=== PATIENT | female | born 1940 | race Caucasian/White ===

== ENCOUNTER 2022-04-09 13:21 | Emergency (ER) | payer BC, SELFPAY ==
[2022-04-09 13:36] VITALS: BP 118/57; PULSE 66; RESP 18; TEMP 37.2; O2SAT 98
--- NOTE | 2022-04-09 13:36 | ED.FEMALEGU ---
HPI - Female Genitourinary General Chief complaint: Urogenital-Female Stated complaint: Poss UTI/foot infection Time Seen by Provider: 04/09/22 13:36 Source: patient and family Mode of arrival: wheelchair Limitations: no limitations History of Present Illness HPI Narrative: 81 yo F presents with c/o urinary urgency, burning, bladder pressure for 2 days. Also reports some mild itching. Is concerned she has UTI. Reports kidney issues . Takes macrobid daily for several years. Denies ever/chills. No N/V. Lives in assisted living. PCP was not able to see her today. Also reports pain, redness and swelling to R great toe. Was on doxycycline a month ago for toe infection. States infection improved but toe has still been painful. Denies injury. Would like referral to podiatry. All systems reviewed and negative except as noted above. Related Data Home Medications Medication Instructions Recorded Confirmed ferrous sulfate 325 mg (65 mg 1 tablet PO DAILY 04/09/22 04/09/22 iron) tablet (FeroSul) fluoxetine 40 mg capsule 1 cap PO DAILY 04/09/22 04/09/22 primidone 50 mg tablet 3 tablet PO DAILY 04/09/22 04/09/22 quinapril 10 mg tablet 1 tablet PO DAILY 04/09/22 04/09/22 ropinirole 4 mg tablet 1 tablet PO TID 04/09/22 04/09/22 triamterene 37.5 1 cap PO DAILY 04/09/22 04/09/22 mg-hydrochlorothiazide 25 mg capsule Allergies Allergy/AdvReac Type Severity Reaction Status Date / Time Cephalosporins Allergy Mild Swelling Verified 04/09/22 14:31 of Lip/Tongue/Throat Review of Systems Review of Systems: CONSTITUTIONAL: Denies fever, chills, or sweats. EYES: Denies visual changes, redness, or discharge. ENT: Denies rhinorrhea, congestion, sore throat, or otalgia. CARDIOVASCULAR: Denies chest pain, palpitations, or edema. RESPIRATORY: Denies cough or dyspnea. GASTROINTESTINAL: Denies abdominal pain, nausea, vomiting, or diarrhea. GENITOURINARY: Reports dysuria, bladder pressure, urgency. Denies hematuria. SKIN: Denies rash or itching. Reports redness, swelling to right great toe. MUSCULOSKELETAL: Denies back pain, joint pain, or myalgia. NEUROLOGIC: Denies headache, numbness, or weakness. PSYCHIATRIC: Denies anxiety or depression. All other systems reviewed are negative, except as documented in HPI. PMFSH Comments At time of signature, agree with nursing past medical, surgical, social and family history. There is no relevant family history pertinent to the presenting complaint. Exam Narrative: GENERAL: This is a well-nourished, well-developed patient, in no apparent distress. HEAD: normocephalic, atraumatic. EYES: PERRL. Sclera clear/white. Vision is grossly intact. EARS: External ears normal NOSE: External nose normal NECK: Neck supple, non-tender without lymphadenopathy, masses or thyromegaly. CARDIOVASCULAR: Regular rate and rhythm without murmurs, gallops, or rubs. RESPIRATORY: Clear to auscultation. Breath sounds equal bilaterally. No wheezes, rales, or rhonchi. SKIN: warm, Dry, intact with no suspicious lesions or rash, good texture and turgor. erythema, mild swelling to R great toe. tenderness along cuticle of R great toe. no drainage. nail is thick and yellow. NEURO: awake, alert, and oriented to person, place and time. There were no obvious focal neurologic abnormalities. EXTREMITIES: No joint tenderness, effusion, or edema noted. BACK: No CVA tenderness. Course Course Level of Care: Express Care Visit Vital Signs Vital signs: Vital Signs Temperature 37.2 C 04/09/22 13:36 Pulse Rate 66 04/09/22 13:36 Respiratory Rate 18 04/09/22 13:36 Blood Pressure 118/57 L 04/09/22 13:36 Pulse Oximetry 98 04/09/22 13:36 Oxygen Delivery Room Air 04/09/22 13:36 Temperature 37.2 C 04/09/22 13:36 Pulse Rate 66 04/09/22 13:36 Respiratory Rate 18 04/09/22 13:36 Blood Pressure 118/57 L 04/09/22 13:36 Pulse Oximetry 98 04/09/22 13:36 Oxygen Delivery Room Air 04/09/22 13:36
== END 2022-04-09 15:00 | disposition home or self-care (01) ==
PROVIDERS: Emergency Provider Nurse Practitioner Family; PCP Internal Medicine
DX: R30.0 Dysuria (principal); L03.031 Cellulitis of right toe; I10 Essential (primary) hypertension; F32.A Depression, unspecified; Z96.653 Presence of artificial knee joint, bilateral; Z96.612 Presence of left artificial shoulder joint; Z96.611 Presence of right artificial shoulder joint
CPT/HCPCS: 81003; 99213; G0463

== ENCOUNTER 2022-06-06 12:39 | Emergency (ER) | payer BC, SELFPAY ==
--- NOTE | 2022-06-06 12:53 | ED.FEMALEGU ---
HPI - Female Genitourinary General Chief complaint: Urogenital-Female Stated complaint: poss UTI Time Seen by Provider: 06/06/22 12:53 Source: patient, RN notes reviewed and old records reviewed Mode of arrival: ambulatory (with use of walker) Limitations: no limitations History of Present Illness HPI Narrative: 82 year old female accompanied by daughter in law presents ambulatory with walker to express care with complaints of urinary burning and urgency for the past 2 days. Patient does have some problems with urinary incontinency and does wear depends with history of urinary tract infections. Patient takes daily Macrobid prophylactically for frequent urinary tract infections. Patient reports that she has increased burning with urination, denies any flank pain or any suprapubic tenderness, denies any visible blood with urination.Patient reports that she has been COVID vaccinated. MD elicited complaint: dysuria and UTI Pertinent past history: recurrent UTIs and urinary incontinence Onset (ago): day(s) (2) Related Data Home Medications Medication Instructions Recorded Confirmed ferrous sulfate 325 mg (65 mg 1 tablet PO DAILY 04/09/22 06/06/22 iron) tablet (FeroSul) fluoxetine 40 mg capsule 1 cap PO DAILY 04/09/22 06/06/22 primidone 50 mg tablet 1 tablet PO TID 04/09/22 06/06/22 quinapril 10 mg tablet 1 tablet PO DAILY 04/09/22 06/06/22 ropinirole 4 mg tablet 1 tablet PO TID 04/09/22 06/06/22 triamterene 37.5 1 cap PO DAILY 04/09/22 06/06/22 mg-hydrochlorothiazide 25 mg capsule docusate sodium 100 mg capsule 300 mg PO HS 06/06/22 06/06/22 (Stool Softener) nitrofurantoin 100 mg PO BID 06/06/22 06/06/22 monohydrate/macrocrystals 100 mg capsule pantoprazole 40 mg tablet,delayed 40 mg PO DAILY 06/06/22 06/06/22 release Allergies Allergy/AdvReac Type Severity Reaction Status Date / Time Cephalosporins Allergy Mild Swelling Verified 06/06/22 12:47 of Lip/Tongue/Throat Review of Systems Review of Systems: CONSTITUTIONAL: Denies fever, chills, or sweats. EYES: Denies visual changes, redness, or discharge. ENT: Denies rhinorrhea, congestion, sore throat, or otalgia. CARDIOVASCULAR: Denies chest pain, palpitations, or edema. RESPIRATORY: Denies cough or dyspnea. GASTROINTESTINAL: Denies abdominal pain, nausea, vomiting, or diarrhea.No CVA tenderness GENITOURINARY: Positive dysuria and urgency with no visible hematuria. SKIN: Denies rash or itching. MUSCULOSKELETAL: Denies back pain, joint pain, or myalgia. NEUROLOGIC: Denies headache, numbness, or weakness. PSYCHIATRIC: Positive for history of anxiety or depression. All systems reviewed & are unremarkable except as noted in HPI and below PMFSH Past Medical History Medical History (Updated 06/08/22 @ 11:17 by Cindy Cohn NP) Anemia Depression Essential tremor GERD (gastroesophageal reflux disease) Hiatal hernia Hypertension Restless leg syndrome UTI (urinary tract infection) Surgical History Surgical History (Updated 06/08/22 @ 11:08 by Cindy Cohn NP) History of knee replacement procedure of left knee History of shoulder replacement bilateral Status post total knee replacement, right Social History Social History (Updated 06/08/22 @ 11:12 by Cindy Cohn NP) Smoking status: Never smoker Alcohol intake: former Alcohol use details: rare Substance use: never Substance use type: does not use Living arrangements: assisted living Occupation/Education: retired Gender identity (if verbalized by the patient): Female Comments At time of signature, agree with nursing past medical, surgical, social and family history. There is no relevant family history pertinent to the presenting complaint Exam Narrative: GENERAL: Well-appearing, well-nourished, and in no acute distress. HEAD: Normocephalic, atraumatic. EYES: PERRLA and EOMI. ENT: Nares clear, no rhinorrhea or epistaxis. Mucous membranes moist.TM'
[2022-06-06 13:03] VITALS: BP 155/75; PULSE 85; RESP 16; TEMP 37.3; O2SAT 100
== END 2022-06-06 13:35 | disposition home or self-care (01) ==
PROVIDERS: Emergency Provider Registered Nurse; PCP Internal Medicine
DX: N39.0 Urinary tract infection, site not specified (principal); K21.9 Gastro-esophageal reflux disease without esophagitis; I10 Essential (primary) hypertension; G25.81 Restless legs syndrome; Z96.653 Presence of artificial knee joint, bilateral; Z96.612 Presence of left artificial shoulder joint; Z96.611 Presence of right artificial shoulder joint; D64.9 Anemia, unspecified; F32.A Depression, unspecified
CPT/HCPCS: 87086; 87088; 99213; G0463

== ENCOUNTER 2025-01-24 19:46 | Inpatient (IN) | payer MEDICARE, BC, SELFPAY ==
--- NOTE | ~2025-01-24 | XR_ITS ---
XR chest 1V portable Ordering provider: Crow Gregory MD History: 84 years Female with . Ground level fall . Comparison: None. FINDINGS: MEDIASTINUM: The cardiac silhouette is not enlarged. Possible sliding hiatus hernia versus elevation of the left hemidiaphragm. The line Projected over the right apical area is most likely outside the body. LUNGS: No pneumothorax. Opacification in the left lower lobe area suggestive of atelectasis versus pn eumonia. Prominent bronchovascular markings in both lower lobes. OTHER: No free air under the diaphragm. Bilateral shoulder arthroplasty. Degenerative changes of the spine with dextroscoliosis. IMPRESSION: Opacification in the left lower lobe area which may indicate atelectasis versus pneumonia. Elevation of the hemidiaphragm cannot be excluded. Sliding hiatus hernia in this area also cannot be excluded. Further evaluation advised. Reviewed, dictated and finalized at location A. IMPRESSION: Opacification in the left lower lobe area which may indicate atelectasis versus pneumonia. Elevation of the hemidiaphragm cannot be excluded. Sliding hiatus hernia in thi s area also cannot be excluded. Further evaluation advised.
--- NOTE | ~2025-01-24 | CT_ITS ---
CT brain wo con Ordering provider: Suzanne Smith APRN History: 84 years Female with . vertigo . Comparison: January 24, 2025 Technique: CT of the head without contrast. Radiation reduction technique utilized.The dose-length pr oduct was 1276.84 mGy-cm. FINDINGS: BRAIN PARENCHYMA AND CSF SPACES: Mild leukoaraiosis and diffuse cortical atrophy. Mild atheromatous d isease. Ventricular dilatation is prominent compared to the brain atrophy. Clinical evaluation for no rmal pressure hydrocephalus should be considered. No midline shift, mass effect or hemorrhage. The b rain parenchyma and CSF spaces are otherwise normal. VISUALIZED PARANASAL SINUSES: Well aerated. MASTOIDS: Well aerated. BONES: The bones appear intact. SOFT TISSUES: Visualized nasopharynx is normal. Superficial soft tissues are normal. IMPRESSION: No acute intracranial findings. Reviewed, dictated and finalized at location A.
--- NOTE | ~2025-01-24 | CT_ITS ---
CT brain wo con, CT cervical spine wo con Ordering provider: Crow Gregory MD History: 84 years Female with . fall, head injury . Comparison: None. Technique: CT of the head without contrast. Radiation reduction technique utilized.The dose-length pr oduct was 605.33 mGy-cm. FINDINGS: BRAIN PARENCHYMA AND CSF SPACES: Mild leukoaraiosis and diffuse cortical atrophy. Mild atheromatous d isease. Ventricular dilatation is seen which is more prominent than the brain atrophy. Normal pressur e hydrocephalus should be considered. No midline shift, mass effect or hemorrhage. The brain parench yma and CSF spaces are otherwise normal. VISUALIZED PARANASAL SINUSES: Well aerated. MASTOIDS: Well aerated. BONES: The bones appear intact. Fracture of C1 is highly suggestive. SOFT TISSUES: Visualized nasopharynx is normal. Superficial soft tissues are normal. IMPRESSION: No acute intracranial findings. Brain atrophy with dilated ventricles which is not compatible with the degree of atrophy. Normal pres sure hydrocephalus should be considered. CT brain wo con, CT cervical spine wo con Ordering provider: Crow Gregory MD History: . fall, head injury . Comparison: None. Technique: CT of the cervical spine was performed without contrast. Sagittal and coronal reformatted images were also obtained and reviewed. Automated exposure control and iterative reconstruction fernando hnique were employed. The dose-length product was 605.33 mGy-cm. FINDINGS: VERTEBRAE: Fracture of C1 is seen suggestive of Juliano fracture involving the anterior arch of C1 and both posterior arch sides. No fractures seen in the occipital condyles. Levoscoliosis. Widening o f the distance between the posterior arch of C1 and C2 suggestive of ligamentous injury. DISC SPACES: Narrowing of the disc spaces C4-C5, C5-C6, C6-C7 and C7-T1. Multilevel facet joint disea se. Multilevel uncovertebral joint osteoarthritic changes. Multilevel intervertebral foraminal narrow ing. PARASPINOUS SOFT TISSUES: Hematoma posterior to the odontoid process is not excluded but this ca n be ligamentous calcification. Minimal opacification seen peripherally in the left lung apex suggest jonathan of atelectasis versus focal pneumonia. IMPRESSION: Juliano fracture of C1 is noted. Widening of the distance between C1-C2 spinous processes which may indicate ligamentous injury. Multilevel degenerative disc disease seen. Physician: Crow Gregory MD Was notified with the result of the patient at 10:00 Pm on January 24, 2025. Reviewed, dictated and finalized at location A. IMPRESSION: No acute intracranial findings. Brain atrophy with dilated ventricles which is not compatible with the degree o f atrophy. Normal pressure hydrocephalus should be considered. CT brain wo con, CT cervical spine wo con Ordering provider: Crow Gregory MD History: . fall, head injury . Comparison: None. Technique: CT of the cervical spine was performed without contrast. Sagittal a nd coronal reformatted images were also obtained and reviewed. Automated expos ure control and iterative reconstruction technique were employed. The dose-victoria th product was 605.33 mGy-cm. FINDINGS: VERTEBRAE: Fracture of C1 is seen suggestive of Juliano fracture involving th e anterior arch of C1 and both posterior arch sides. No fractures seen in the o ccipital condyles. Levoscoliosis. Widening of the distance between the posterio r arch of C1 and C2 suggestive of ligamentous injury. DISC SPACES: Narrowing of the disc spaces C4-C5, C5-C6, C6-C7 and C7-T1. Multil evel facet joint disease. Multilevel uncovertebral joint osteoarthritic changes . Multilevel intervertebral foraminal narrowing. PARASPINOUS SOFT TISSUES: Lloyd jacey posterior to the odontoid process is not excluded but this can be ligament ous calcification. Minimal opacification seen peripherally in the left lung ape x suggestive of atelectasis versus focal pneumonia. IMPRESSION: Juliano fracture of C1 is noted. Widening of the distance between C1-C2 spinous processes which may indicate lig amentous injury. Multilevel degenerative disc disease seen. Physician: Crow Gregory MD Was notified with the result of the patient at 10:00 Pm on January 24, 2025. IMPRESSION: No acute intracranial findings. Brain atrophy with dilated ventricles which is not compatible with the degree o f atrophy. Normal pressure hydrocephalus should be considered. CT brain wo con, CT cervical spine wo con Ordering provider: Crow Gregory MD History: . fall, head injury . Comparison: None. Technique: CT of the cervical spine was performed without contrast. Sagittal a nd coronal reformatted images were also obtained and reviewed. Automated expos ure control and iterative reconstruction technique were employed. The dose-victoria th product was 605.33 mGy-cm. FINDINGS: VERTEBRAE: Fracture of C1 is seen suggestive of Juliano fracture involving th e anterior arch of C1 and both posterior arch sides. No fractures seen in the o ccipital condyles. Levoscoliosis. Widening of the distance between the posterio r arch of C1 and C2 suggestive of ligamentous injury. DISC SPACES: Narrowing of the disc spaces C4-C5, C5-C6, C6-C7 and C7-T1. Multil evel facet joint disease. Multilevel uncovertebral joint osteoarthritic changes . Multilevel intervertebral foraminal narrowing. PARASPINOUS SOFT TISSUES: Lloyd jacey posterior to the odontoid process is not excluded but this can be ligament ous calcification. Minimal opacification seen peripherally in the left lung ape x suggestive of atelectasis versus focal pneumonia.
--- OUTSIDE RECORDS SUMMARY | 2025-01-24 19:48 | XMS_ITS | CONTINUITY OF CARE DOCUMENT ---
Author Name liseth childers Address Unknown Organization [facility] Address [address] [place] [address] Phone [phone] Care Team Providers Care Clinical Manager Home Care Name Role Phone Den SHEEHAN, Colton Unavailable Stone OCEAN FREIGHT MANAGER-BC, Crystal Unavailable Stone OCEAN FREIGHT MANAGER-BC, Crystal Unavailable [phone] PROBLEMS Condition Status Date Provider Notes Cardiology examination active Colton Crenshaw MD HTN essential active Colton Crenshaw MD Anxiety/depression active Colton Crenshaw MD Leg edema, bilateral active Colton Crenshaw MD VENOUS INSUFFICIENCY - mild active Colton oglesby MD ENCOUNTERS Date Type Provider Location Encounter Diag nosis - In-person encounter Office Visit Colton Crenshaw MD [place] VENOUS INSUFFICIENCY - mild - In-person encounter Office Visit Colton Crenshaw MD [facility] Cardiology examinationHTN essentialAnxiety/depre ssionLeg edema, bilateral VITAL SIGNS Date Observation Value Provider blood pressure, diastolic 79 mm[Hg] Nael walton Samira blood pressure, systolic 145 mm[Hg] She maddie Samira respiratory rate E&M 18 /min Alie Samira oxygen saturation, oximetry 98 % Alie Hogan pulse rate 53 /min Alie Hogan height E&M 62 [in_i] Alie Hogan blood pressure, cuff size regular Nael Hogan blood pressure, diastolic 70 mm[Hg] Stephanie nkLogclemencia blood pressure, systolic 144 mm[Hg] Laura Hinkleogic pulse rate 59 /min Tj javier y blood pressure, cuff size regular Ja rret blood pressure, diastolic 70 mm[Hg] Ja rret blood pressure, systolic 144 mm[Hg] Jar ret respiratory rate E&M 12 /min Tj oxygen saturation, oximetry 95 % Tj height E&M 62 [in_i] Tj y ALLERGIES No Known Drug Allergies HISTORY OF MEDICATION USE Medication Status Instructions Dates Provider Indications Com ments docusate sodium 100 mg capsule active FeroSul 325 mg (65 mg iron) tablet active fluoxetine 40 mg capsule active furosemide 40 mg tablet active lisinopril 10 mg tablet active pantoprazole 40 mg tablet,delayed release (DR/EC) active primidone 50 mg tablet active quinapril 10 mg tablet active ropinirole 4 mg tablet active Vitamin B-12 500 mcg tablet active SOCIAL HISTORY Date Observation Value Provider social history E&M S moking History: Horace denny has never smoked. Colton Crenshaw MD social history reviewed E&M revi ewed - no changes required Colton Crenshaw MD smoking status Never smoker Alie Samira social history E&M S moking History: Horace denny has never smoked. Colton Crenshaw MD social history reviewed E&M revi ewed - no changes required Colton Crenshaw MD smoking status Never smoker Nora Cabrera man INSURANCE PROVIDERS Payer name Policy type / Coverage type Jewels red libertarian ID [facility] [id number] ADVANCE DIRECTIVES Name Date DISCUSSED - NO DECISION MADE TREATMENT PLAN Date Name Performer [id number],C,a dvised her to wear elis bandages around LE because compression stockings would be difficult for her to get on Colton Crenshaw MD [id number],C, B P today: 145/79 P rior BP: 144/70 (05/13/2023) Her updated medication list for this problem includes: Furosemide 40 Mg Tablet (Furosemide) Lisinopril 10 Mg Tablet (Lisinopril) Quinapril 10 Mg Tablet (Quinapril) Colton Crenshaw MD [id number],N, Colton Crenshaw MD [id number],C, B P today: 144/70 Her updated medication list for this problem includes: Furosemide 40 Mg Tablet (Furosemide) Lisinopril 10 Mg Tablet (Lisinopril) Colton Crenshaw MD [id number],C,W ill get labs from her imaging center manager office W ill get LEYLA and standing venous doppler Colton Crenshaw MD Cardiology:advised h er to wear elis bandages around LE because compression stockings would be difficult for her to get on Colton Crenshaw MD Cardiology: B P today: 145/79 P rior BP: 144/70 (05/13/2023) Her updated medication list for this problem includes: Furosemide 40 Mg Tablet (Furosemide) Lisinopril 10 Mg Tablet (Lisinopril) Quinapril 10 Mg Tablet (Quinapril) Colton Crenshaw MD Cardiology Colton Crenshaw MD Cardiology: B P today: 144/70 Her updated medication list for this problem includes: Furosemide 40 Mg Tablet (Furosemide) Lisinopril 10 Mg Tablet (Lisinopril) Colton Crenshaw MD Cardiology:Will get labs from her imaging center manager office W ill get LEYLA and standing venous doppler Colton Den MD Date Name Arterial Duplex Bi-L ower EX Venous Doppler Bilat eral LE - Reflux Complete Echo HISTORY OF PROCEDURES Procedure Date Procedure Name Provider Procedure Notes S tatus EKG Colton Crenshaw MD completed
[2025-01-24 19:53] VITALS: BP 129/53; PULSE 58; RESP 14; TEMP 36.6; O2SAT 100
--- OUTSIDE RECORDS SUMMARY | 2025-01-24 22:33 | XMS_ITS | CONTINUITY OF CARE DOCUMENT ---
Author Name liseth childers Address Unknown Organization [facility] Address [address] [place] [address] Phone [phone] Care Team Providers Care Knitter Machine Name Role Phone Den SHEEHAN, Colton Unavailable Stone PYTHON DEVELOPER-BC, Crystal Unavailable [phone] Stone PYTHON DEVELOPER-BC, Crystal Unavailable PROBLEMS Condition Status Date Provider Notes Cardiology examination active Colton Crenshaw MD HTN essential active Colton Crenshaw MD Anxiety/depression active Colton Crenshaw MD Leg edema, bilateral active Colton Crenshaw MD VENOUS INSUFFICIENCY - mild active Colton oglesby MD ENCOUNTERS Date Type Provider Location Encounter Diag nosis - In-person encounter Office Visit Colton Crenshaw MD [place] [facility] VENOUS INSUFFICIENCY - mild - In-person encounter Office Visit Colton Crenshaw MD [facility] Cardiology examinationHTN essentialAnxiety/depre ssionLeg edema, bilateral [...] Policy type / Coverage type Jewels red constitution party ID [facility] [id number] ADVANCE DIRECTIVES Name Date DISCUSSED - NO DECISION MADE TREATMENT PLAN Date Name Performer [id number],C,a dvised her to wear elis bandages around LE because compression stockings would be difficult for her to get on Colton Crenshaw MD [id number],C, B P today: 145/79 P rior BP: 144/70 (05/13/2023) Her updated medication list for this problem includes: Furosemide 40 Mg Tablet (Furosemide) Lisinopril 10 Mg Tablet (Lisinopril) Quinapril 10 Mg Tablet (Quinapril) Colton Crenshaw MD [id number],N, Colton Crenshaw MD [id number],C, B P today: 144/70 Her updated medication list for this problem includes: Furosemide 40 Mg Tablet (Furosemide) Lisinopril 10 Mg Tablet (Lisinopril) Colton Cernshaw MD [id number],C,W ill get labs from her academic manager office W ill get LEYLA and [...] Crenshaw MD Cardiology:Will get labs from her academic manager office W ill get LEYLA and standing venous doppler Colton Den MD Date Name Arterial Duplex Bi-L ower EX Venous Doppler Bilat eral LE - Reflux Complete Echo HISTORY OF PROCEDURES Procedure Date Procedure Name Provider Procedure Notes S tatus EKG Colton Crenshaw MD completed
--- NOTE | 2025-01-24 22:49 | ED_ITS ---
HPI - General Adult General Chief complaint: Fall Stated complaint: fall, head injury Time Seen by Provider: 01/24/25 22:20 History of Present Illness HPI narrative: Patient is a 84-year-old female who presents emergency department with chief complaint of neck pain and head pain patient is resident [facility] the [facility] and had a ground level fall fell backwards and struck her head on the tile floor patient reports no loss of consciousness reports that her neck is sore Related Data Home Medications ?Medication ?Instructions ?Recorded ?Confirmed ?Last Taken ?Type ferrous sulfate 325 mg (65 mg 1 tablet PO DAILY 04/09/22 06/06/22 Unknown History iron) tablet (FeroSul) fluoxetine 40 mg capsule 1 cap PO DAILY 04/09/22 06/06/22 Unknown History primidone 50 mg tablet 1 tablet PO TID 04/09/22 06/06/22 Unknown History quinapril 10 mg tablet 1 tablet PO DAILY 04/09/22 06/06/22 Unknown History ropinirole 4 mg tablet 1 tablet PO TID 04/09/22 06/06/22 Unknown History triamterene 37.5 1 cap PO DAILY 04/09/22 06/06/22 Unknown History mg-hydrochlorothiazide 25 mg capsule docusate sodium 100 mg capsule 300 mg PO HS 06/06/22 06/06/22 Unknown History (Stool Softener) nitrofurantoin 100 mg PO BID 06/06/22 06/06/22 Unknown History monohydrate/macrocrystals 100 mg capsule pantoprazole 40 mg tablet,delayed 40 mg PO DAILY 06/06/22 06/06/22 Unknown History release Allergies Allergy/AdvReac Type Severity Reaction Status Date / Time Cephalosporins Allergy Mild Swelling Verified 01/24/25 20:00 of Lip/Tongue/Throat Review of Systems 2 Review of Systems: A 10 system review of systems was completed on the patient and is negative except for what is stated in the HPI. Nursing and ancillary documentation was reviewed. [facility] Past Medical History Medical History Restless leg syndrome Depression GERD (gastroesophageal reflux disease) Anemia UTI (urinary tract infection) Hiatal hernia Essential tremor Hypertension Surgical History Surgical History History of shoulder replacement bilateral Status post total knee replacement, right History of knee replacement procedure of left knee Social History Social History Smoking status: Never smoker Alcohol intake: former Alcohol use details: rare Substance use: never Substance use type: does not use Living arrangements: assisted living Occupation/Education: retired Gender identity (if verbalized by the patient): Female Exam 2 Narrative: GENERAL: Well-appearing, well-nourished, and in no acute distress. HEAD: Normocephalic, atraumatic. EYES: PERRLA and EOMI. ENT: Nares clear, no rhinorrhea or epistaxis. Mucous membranes moist. NECK: Supple. Mild midline C-spine tenderness CHEST: Clear to auscultation. No respiratory distress. HEART: Regular rate and rhythm. No murmur heard. Normal peripheral pulses. ABDOMEN: Soft, nontender, nondistended, normal active bowel sounds. EXTREMITIES: Normal range of motion. No edema. SKIN: Warm, dry, no rash. NEURO: No focal deficits. Alert and oriented x3. PSYCH: Normal mood and affect. Course Vital Signs Vital signs: Vital Signs Temperature 36.6 C 01/24/25 19:53 Pulse Rate 58 L 01/24/25 19:53 Respiratory Rate 14 01/24/25 19:53 Blood Pressure 129/53 L 01/24/25 19:53 Pulse Oximetry 100 01/24/25 19:53 Oxygen Delivery Room Air 01/24/25 19:53 Temperature 36.6 C 01/24/25 19:53 Pulse Rate 61 01/24/25 23:06 Respiratory Rate 14 01/24/25 23:06 Blood Pressure 135/52 L 01/24/25 23:06 Pulse Oximetry 100 01/24/25 23:06 Oxygen Delivery Room Air 01/24/25 19:53 Medical Decision Making [facility] Narrative Medical decision making narrative: Differential diagnosis includes intracranial hemorrhage, cervical spine fracture The patient had a mechanical ground level fall reports isolated pain in the neck Laboratory studies were ordered CT head showed no evidence of acute intracranial hemorrhage CT C-spine showed evidence of a C1 Juliano fracture Case was discussed with Dr. Meza Vital Signs Vital Signs: Vital Signs Temperature 36.6 C 01/24/25 19:53 Pulse Rate 58 L 01/24/25 19:53 Respiratory Rate 14 01/24/25 19:53 Blood Pressure 129/53 L 01/24/25 19:53 Pulse Oximetry 100 01/24/25 19:53 Oxygen Delivery Room Air 01/24/25 19:53 Temperature 36.6 C 01/24/25 19:53 Pulse Rate 61 01/24/25 23:06 Respiratory Rate 14 01/24/25 23:06 Blood Pressure 135/52 L 01/24/25 23:06 Pulse Oximetry 100 01/24/25 23:06 Oxygen Delivery Room Air 01/24/25 19:53 Lab Data 01/24/25 22:55 01/24/25 22:55 Labs: Lab Results 01/24/25 01/24/25 Range/Units 22:55 23:28 WBC 7.6 (4.5-10.0) K/mm3 RBC 3.04 L (4.2-5.4) M/mm3 Hgb 9.8 L (12.0-15.0) g/dL Hct 30.2 L (37.0-47.0) % MCV 99.3 (80-100) fl MCH 32.2 (26-34) pg MCHC 32.5 (32-36) g/dl RDW 14.6 H (11.5-14.5) % Plt Count 254 (150-375) k/mm3 MPV 10.4 (7.4-10.4) fl Immature Gran % (Auto) 0.3 (0-0.5) % Neut % (Auto) 50.6 (45.5-73.1) % Lymph % (Auto) 36.2 (18.3-44.2) % [place] % (Auto) 9.1 H (2.6-8.5) % Eos % (Auto) 3.3 (0-4.4) % Baso % (Auto) 0.5 (0.2-1.2) % Lymph # (Auto) 2.73 (0.9-3.2) K/mm3 [place] # (Auto) 0.7 H (0.1-0.6) K/mm3 Eos # (Auto) 0.3 (0-0.3) K/mm3 Baso # (Auto) 0.0 (0.0-0.1) K/mm3 Abs Immat Gran (auto) 0.02 (0.00-0.031) K/mm3 Absolute Neuts (auto) 3.8 (1.3-6.7) K/mm3 Absolute Nucleated RBC 0.000 (0.0-0.012) K/mm3 Nucleated RBC % 0.0 (0.0-0.2) % Sodium 138 (137-145) mmol/L Potassium 4.3 (3.4-5.0) mmol/L Chloride 100 (98-107) mmol/L Carbon Dioxide 31 H (22-30) mmol/L Anion Gap 7 (4-12) mmol/L BUN 38 H (7-17) mg/dL Creatinine 1.64 H (0.7-1.0) mg/dL Estim Creat Clear Calc 20 ml/min Estimated GFR 30 L (59 - ) Glucose 88 (65-110) mg/dL Calcium 9.3 (8.4-10.2) mg/dL Total Bilirubin 0.2 (0.2-1.3) mg/dL AST 27 (14-36) U/L ALT 19 (6-35) U/L Alkaline Phosphatase 60 (38-126) U/L Total Protein 6.0 L (6.3-8.2) g/dL Albumin 3.5 (3.5-5.1) g/dL Urine Color Yellow (Yellow) Urine Appearance Cloudy H (Clear) Urine pH 6.0 (5.0-9.0) Ur Specific [place] 1.014 (1.001-1.035) Urine Protein Trace (Negative) mg/dL Urine Glucose (UA) Negative (Negative) mg/dL Urine Ketones Negative (Negative) mg/dL Ur Blood (Man) Non-hemolyzed trace H (Negative) Urine Nitrate Negative (Negative) Urine Bilirubin Negative (Negative) Urine Urobilinogen 0.2 (<2.0) mg/dL Leukocyte Esterase Rfl 3+ H (Negative) MICHAEL/UL Urine RBC 0-2 (0-2) /hpf Urine WBC >100 H (0-3) /hpf Ur Squamous Epith Cells None seen (Few) /hpf Urine Bacteria Trace /hpf Urine Casts 0-2 Discharge Plan Discharge Clinical Impression: C1 cervical fracture, Ground-level fall, Acute UTI Patient Disposition: Still a Patient Condition: Stable Patient Language: Frisian Prescriptions: No Action primidone 50 mg tablet 1 tablet PO TID quinapril 10 mg tablet 1 tablet PO DAILY fluoxetine 40 mg capsule 1 cap PO DAILY triamterene-hydrochlorothiazid 37.5-25 mg capsule 1 cap PO DAILY ropinirole 4 mg tablet 1 tablet PO TID ferrous sulfate [FeroSul] 325 mg (65 mg iron) tablet 1 tablet PO DAILY nitrofurantoin monohyd/m-cryst 100 mg capsule 100 mg PO BID docusate sodium [Stool Softener] 100 mg Capsule 300 mg PO HS pantoprazole 40 mg tablet,delayed release (DR/EC) 40 mg PO DAILY ciprofloxacin HCl 500 mg tablet 500 mg PO Q12H Qty: 14 0RF Follow-up/Referrals: Chadd,Nile Brunson MD [Primary Care Provider] - Time of Disposition: 23:06
[2025-01-24 23:06] VITALS: BP 135/52; PULSE 61; RESP 14; O2SAT 100
[2025-01-24 23:09] LABS: Basophils Percent Auto 0.5 % (0.2-1.2); Eosinophils Absolute Auto 0.3 K/mm3 (0-0.3); Eosinophils Percent Auto 3.3 % (0-4.4); Hematocrit 30.2 % (37.0-47.0); Hemoglobin 9.8 g/dL (12.0-15.0); Immature Granulocyte Absolute 0.02 K/mm3 (0.00-0.031); Immature Granulocyte Percent A 0.3 % (0-0.5); Lymphocytes Absolute Auto 2.73 K/mm3 (0.9-3.2); Lymphocytes Percent Auto 36.2 % (18.3-44.2); Mean Corpuscular HGB Conc 32.5 g/dl (32-36); Mean Corpuscular Hemoglobin 32.2 pg (26-34); Mean Corpuscular Volume 99.3 fl (80-100); Mean Platelet Volume 10.4 fl (7.4-10.4); Monocytes Absolute Auto 0.7 K/mm3 (0.1-0.6); Monocytes Percent Auto 9.1 % (2.6-8.5); Neutrophils Absolute Auto 3.8 K/mm3 (1.3-6.7); Neutrophils Percent Auto 50.6 % (45.5-73.1); Platelet Count Result 254 k/mm3 (150-375); Red Blood Count 3.04 M/mm3 (4.2-5.4); Red Cell Distribution Width 14.6 % (11.5-14.5); White Blood Count 7.6 K/mm3 (4.5-10.0)
[2025-01-24 23:39] LABS: Add Urine Microscopic? YES; Appearance Urine Cloudy (Clear); Bilirubin Urine Negative (Negative); Blood Urine Non-Hemolyzed Trace (Negative); Color Urine Yellow (Yellow); Glucose Urine UA Negative (Negative); Ketones Urine Negative (Negative); Leukocyte Esterase Ur 3+ LEU/UL (Negative); Nitrate Urine Negative (Negative); Non Pathogenic Casts 0-2; Protein Urine Trace mg/dL (Negative); RBC Urine 0-2 /hpf (0-2); Specific Grav Ur 1.014 (1.001-1.035); Squamous Epithelial Cell Urine None Seen /hpf (Few); Urobilinogen Urine 0.2 mg/dL (<2.0); WBC Urine >100 /hpf (0-3)
[2025-01-24 23:42] LABS: Bacteria Urine Trace /hpf
[2025-01-25 00:07] LABS: Alanine Aminotransferase 19 U/L (6-35); Albumin Level 3.5 g/dL (3.5-5.1); Alkaline Phosphatase 60 U/L (38-126); Anion Gap 7 mmol/L (4-12); Aspartate Amino Transferase 27 U/L (14-36); Bilirubin,Total 0.2 mg/dL (0.2-1.3); Blood Urea Nitrogen 38 mg/dL (7-17); Calcium 9.3 mg/dL (8.4-10.2); Carbon Dioxide 31 mmol/L (22-30); Chloride 100 mmol/L (98-107); Estimated CRCL calculation 20 ml/min; Estimated Glomerular Filt Rate 30; Glucose 88 mg/dL (65-110); Potassium 4.3 mmol/L (3.4-5.0); Sodium 138 mmol/L (137-145)
[2025-01-25] MEDS: levoFLOXacin 750 MG/D5W 150 ML 750 MG/150 ML BAG 100 MG IVPB (00:35)
[2025-01-25] MEDS: HYDROcodone/acetaminophen (*CRX) 5-325 MG TABLET 1 TAB PO (00:40)
[2025-01-25 01:04] VITALS: BP 122/56; PULSE 64; RESP 15; O2SAT 95
[2025-01-25 03:04] VITALS: BP 116/59; PULSE 58; RESP 15; O2SAT 94
[2025-01-25 03:22] VITALS: BMI 20.5
--- NOTE | 2025-01-25 03:22 | ADMGEN ---
This patient, Liliana Garg, was admitted to Medical Room 349-01. Patient/family oriented to hospital policies and general routines including ID bracelet, bed and alarms, visiting hours, pain management, procedures, bathroom and other care routines, personal items, smoking policy, room service/diet, and visiting hours. Information on how to activate the Rapid Response Team has been discussed. Patient/Family are encouraged to report perceived risks to care and to ask questions if they do not understand what they are told or what they should do.
[2025-01-25 03:24] VITALS: BP 125/47; PULSE 65; RESP 18; TEMP 36.4; O2SAT 97
[2025-01-25] MEDS: ACETAMINOPHEN 325 MG TABLET 650 MG PO ×2 (03:40→21:47)
--- NOTE | 2025-01-25 04:07 | PM.IMHP ---
H&P: HPI History of Present Illness Date/Time: 01/25/25 04:07 Chief Complaint: 1. Fall 2. Neck pain Narrative: Liliana Garg sent a 34-year-old female with a medical history significant for IgA, depression, glaucoma, hypertension, GERD, restless leg syndrome A resident of an assisted living facility, she remains stable and at baseline ambulates without assist device but hours prior to admission, while navigating her surroundings, lost her balance and fell backwards and process hit her head on an adjacent object/floor. She immediately use her emergency device, was unsure about loss of consciousness; denies preceding dizziness/vertiginous symptoms, cuts/injuries, bleeding sites, focal weakness, speech/visual impairment or chest pain. She does not smoke/chew tobacco, drink alcohol or consume recreation density drugs Work-up findings: CT cervical spine: Juliano fracture of C1 is noted. Widening of the distance between C1-C2 spinous processes which may indicate ligamentous injury Multilevel degenerative disc disease seen. CXR: Opacification in the left lower lobe area which may indicate atelectasis versus pneumonia. CT head: No acute intracranial findings. Na 138; K 4.3; Cl 100, CO2 31, A/G 7, BUN 38, CR 1.64, GFR 50 AST 27, ALT 19, ALP 60, T-bilirubin 0.2 UA: Negative nitrites, 3+ leukocyte esterase, greater than sign 100, trace bacteria Liliana Garg will be admitted, evaluated, and managed for a cervical spine fracture post fall Review of Systems Review of Systems: All systems reviewed & are unremarkable except as noted in HPI and below PMFSH Past Medical History Medical History Restless leg syndrome Depression GERD (gastroesophageal reflux disease) Anemia UTI (urinary tract infection) Hiatal hernia Essential tremor Hypertension Surgical History Surgical History History of shoulder replacement bilateral Status post total knee replacement, right History of knee replacement procedure of left knee Family History Family History (Updated 01/25/25 @ 03:33 by Radha Raines RN) Mother Glaucoma Father Glaucoma Emphysema lung Heart disease Social History Social History Smoking status: Never smoker Alcohol intake: never Alcohol use details: rare Substance use: never Substance use type: does not use Do You Feel Safe in your Home?: Yes Lack of Transportation: No Lack of Food: Never True Current Housing: I Have Housing Concerned About Future Housing: No Difficulty Paying Gas/Electric Bills: No Difficulty Paying for Meds: No Currently Unemployed: No Education: High School Diploma/GED Difficulty w/ Childcare or Family Care: No Living arrangements: assisted living Occupation/Education: retired Gender identity (if verbalized by the patient): Female Spiritual care concerns: No Meds Home Medications and Allergies Home Medications ?Medication ?Instructions ?Recorded ?Confirmed ?Type ferrous sulfate 325 mg (65 mg 1 tablet PO DAILY 04/09/22 01/25/25 History iron) tablet (FeroSul) fluoxetine 40 mg capsule 1 cap PO DAILY 04/09/22 01/25/25 History primidone 50 mg tablet 1 tablet PO Q12H 04/09/22 01/25/25 History ropinirole 4 mg tablet 1 tablet PO Q12H 04/09/22 01/25/25 History docusate sodium 100 mg capsule 300 mg PO HS 06/06/22 01/25/25 History (Stool Softener) calcium carbonate 600 mg PO BIDWM 01/25/25 01/25/25 History cholecalciferol (vitamin D3) 1,250 1,250 mcg PO WEEKLY 01/25/25 01/25/25 History mcg (50,000 unit) capsule dorzolamide 2 % eye drops 1 drp EACH EYE BID 01/25/25 01/25/25 History furosemide 20 mg tablet 20 mg PO .qod 01/25/25 01/25/25 History furosemide 40 mg tablet 40 mg PO DAILY 01/25/25 01/25/25 History latanoprost 0.005 % eye drops 1 drp EACH EYE QPM 01/25/25 01/25/25 History lisinopril 10 mg tablet 10 mg PO DAILY 01/25/25 01/25/25 History omeprazole 20 mg capsule,delayed 20 mg PO DAILY 01/25/25 01/25/25 History release spironolactone 25 mg tablet 25 mg PO DAILY 01/25/25 01/25/25 History timolol maleate 0.5 % eye drops 1 drp EACH EYE BID 01/25/25 01/25/25 History Allergies Allergy/AdvReac Type Severity Reaction Status Date / Time Cephalosporins Allergy Mild Swelling Verified 01/25/25 03:58 of Lip/Tongue/Throat Vital Signs Vital Signs - 24 hr 01/24/25 19:53 01/24/25 23:06 01/25/25 01:04 Temperature 97.8 F Pulse Rate 58 L 61 64 Respiratory Rate 14 14 15 Blood Pressure 129/53 L 135/52 L 122/56 L Pulse Oximetry 100 100 95 Oxygen Delivery Room Air 01/25/25 03:04 01/25/25 03:24 01/25/25 03:59 Temperature 97.6 F Pulse Rate 58 L 65 Respiratory Rate 15 18 Blood Pressure 116/59 L 125/47 L Pulse Oximetry 94 97 Oxygen Delivery Room Air Exam Const: General: in distress HENMT: Ears: TM's normal bilaterally Face/Nose/Sinus: Normal nares present Mouth: Yes moist mucous membranes Eyes: General: appearance normal, both eyes and all related structures Sclera: sclerae normal Pupils: Equal, round and reactive pupils present Neck: Other: Collar in-situ Resp: Effort & Inspection: normal respiratory effort Auscultation: clear to auscultation bilaterally Cardio: Rate: regular rate Rhythm: regular rhythm Skin: General skin exam: normal color Rashes: rashes noted Wounds: no wounds Neuro: Speech: normal speech Motor exam (neuro): Normal motor muscle tone present throughout Extrem: General: normal to inspection and no pedal edema Psych: Mental Status: mental status grossly normal Affect: Anxious affect present H&P: Results Labs Labs: Short CBC 01/24/25 Range/Units 22:55 WBC 7.6 (4.5-10.0) K/mm3 Hgb 9.8 L (12.0-15.0) g/dL Hct 30.2 L (37.0-47.0) % Plt Count 254 (150-375) k/mm3 BMP 01/24/25 22:55 Sodium 138 Potassium 4.3 Chloride 100 Carbon Dioxide 31 H BUN 38 H Creatinine 1.64 H Glucose 88 Calcium 9.3 Liver Function 01/24/25 Range/Units 22:55 Total Bilirubin 0.2 (0.2-1.3) mg/dL AST 27 (14-36) U/L ALT 19 (6-35) U/L Alkaline Phosphatase 60 (38-126) U/L Albumin 3.5 (3.5-5.1) g/dL Urine 01/24/25 Range/Units 23:28 Urine Color Yellow (Yellow) Urine Appearance Cloudy H (Clear) Urine pH 6.0 (5.0-9.0) Ur Specific [place] 1.014 (1.001-1.035) Urine Protein Trace (Negative) mg/dL Urine Glucose (UA) Negative (Negative) mg/dL Assessment and Plan Assessment and plan (1) Hypertension: Code(s): I10 - Essential (primary) hypertension Status: Acute (2) Acute UTI: Code(s): N39.0 - Urinary tract infection, site not specified Status: Acute (3) C1 cervical fracture: Code(s): S12.000A - Unspecified displaced fracture of first cervical vertebra, initial encounter for closed fracture Status: Acute Plan Acute and principal conditions 1. Cervical spine fracture, C1 2. Fall 3. Unstable gait 4. Acute renal insufficiency 5. UTI Rx: 1. NSY consult 2. Neck-brace; immobilize neck 3. Falls and safety precautions 4. IVFs; monitor renal function; avoid nephrotoxins 5. Levofloxacin; Urine cultures 6. PT eval and Rx, once NSY refits collar and clears for Rx Chronic and stable conditions 1. RLS. 2. Glaucoma. 3. GERD. 4. Hypertension. 5. Recurrent depression Miscellaneous conditions 1. Code status. Full 2. Nutrition. Healthy 3. VTE prophylaxis. SCDs; [facility] Hospitalist M[facility] Advance Care Plan I have confirmed that the patient's Advanced Care Plan is present, code status is documented, or surrogate decision maker is listed in patient medical record.: Yes Medication Reconciliation I have utilized all available resources to obtain, update and review the patients current medications (includes all prescriptions, OTC, herbals, cannabis, and nutritional supplements).: Yes The patient is not eligible for med reconciliation; the patient is in a emergent medical situation where delaying treatment would jeopardize the patients health.: Yes
[2025-01-25] MEDS: SODIUM CHLORIDE 0.9% IV 1,000 ML 75 ML IV CONT ×2 (04:41→17:30)
[2025-01-25 06:02] LABS: Cholesterol 141 mg/dL (0-200); HDL Direct 48 mg/dL; Triglycerides 50 mg/dL (<150)
[2025-01-25 06:04] LABS: Basophils Absolute Auto 0.1 K/mm3 (0.0-0.1); Basophils Percent Auto 0.8 % (0.2-1.2); Eosinophils Absolute Auto 0.3 K/mm3 (0-0.3); Eosinophils Percent Auto 4.1 % (0-4.4); Hematocrit 28.6 % (37.0-47.0); Hemoglobin 9.2 g/dL (12.0-15.0); Immature Granulocyte Absolute 0.02 K/mm3 (0.00-0.031); Immature Granulocyte Percent A 0.3 % (0-0.5); Lymphocytes Absolute Auto 2.09 K/mm3 (0.9-3.2); Lymphocytes Percent Auto 34.1 % (18.3-44.2); Mean Corpuscular HGB Conc 32.2 g/dl (32-36); Mean Corpuscular Hemoglobin 32.2 pg (26-34); Mean Platelet Volume 10.6 fl (7.4-10.4); Monocytes Absolute Auto 0.6 K/mm3 (0.1-0.6); Monocytes Percent Auto 10.1 % (2.6-8.5); Neutrophils Absolute Auto 3.1 K/mm3 (1.3-6.7); Neutrophils Percent Auto 50.6 % (45.5-73.1); Platelet Count Result 245 k/mm3 (150-375); Red Blood Count 2.86 M/mm3 (4.2-5.4); Red Cell Distribution Width 14.5 % (11.5-14.5); White Blood Count 6.1 K/mm3 (4.5-10.0)
[2025-01-25 06:13] LABS: LDL Cholesterol Direct 58 mg/dL
[2025-01-25 06:21] VITALS: BP 113/50; PULSE 60; RESP 16; TEMP 36.5; O2SAT 98
[2025-01-25 06:50] LABS: Alanine Aminotransferase 16 U/L (6-35); Albumin Level 3.1 g/dL (3.5-5.1); Alkaline Phosphatase 51 U/L (38-126); Anion Gap 5 mmol/L (4-12); Aspartate Amino Transferase 24 U/L (14-36); Bilirubin,Total 0.3 mg/dL (0.2-1.3); Blood Urea Nitrogen 37 mg/dL (7-17); Calcium 8.9 mg/dL (8.4-10.2); Carbon Dioxide 29 mmol/L (22-30); Chloride 101 mmol/L (98-107); Estimated CRCL calculation 20 ml/min; Estimated Glomerular Filt Rate 31; Glucose 79 mg/dL (65-110); Potassium 3.9 mmol/L (3.4-5.0); Sodium 135 mmol/L (137-145)
[2025-01-25] MEDS: HEPARIN SODIUM 5,000 UNITS/ML VIAL 5000 UNITS SUB-Q ×2 (08:40→20:30)
[2025-01-25 08:41] LABS: Hemoglobin A1C 5.4 % (<5.7)
[2025-01-25 14:00] VITALS: BP 116/51; PULSE 69; RESP 18; TEMP 37.1; O2SAT 97
--- NOTE | 2025-01-25 14:45 | P.CONNS_ITS ---
Assessment and Plan Assessment and plan (1) Acute UTI: Code(s): N39.0 - Urinary tract infection, site not specified Status: Acute (2) C1 cervical fracture: Code(s): S12.000A - Unspecified displaced fracture of first cervical vertebra, initial encounter for closed fracture Status: Acute Plan Ms. Garg is an 84-year-old female who was admitted to the hospital last night after having a ground level fall yesterday with concern for a C1 fracture. She has no neck pain to palpation or with active range of motion on exam. I reviewed CT cervical spine that shows erosive changes at C1 to the pannus, a defect in the anterior arch of C1, as well as chronic appearing, well approximated fractures in the posterior arch. I was able to access the previous CT cervical spine that she had in March 2023 through [facility]. The defect in the anterior arch and chronic appearing fractures in the posterior arch were present at that time as well. There is some widening of the defect in the anterior arch and some increased erosion of the C1-2 region compared to that scan, but I do not believe that she actually has an acute cervical fracture at this time. I cleared her cervical collar at bedside. If she were to develop neck pain, I would recommend replacing the collar and obtaining an MRI cervical spine. Otherwise, I do not recommend any further workup at this time. She can follow up as needed. Consult date: 01/25/25 HPI: Liliana Garg is a 84 year old female with history of essential tremor, hypertension, and GERD presented to the emergency room last night after having a fall at her assisted living facility. She states that she has problems with equilibrium with baseline which caused her to fall onto her bottom. She thinks she may have hit her head. She initially had some headache, but today she denies any significant pain in her head or neck. She denies any radicular pain to the arms or pain elsewhere throughout body. She was found have a UTI on admission and concern for a C1 fracture. Review of Systems 2 Review of Systems: All systems reviewed & are unremarkable except as noted in HPI and below PMFSH Past Medical History Medical History Restless leg syndrome Depression GERD (gastroesophageal reflux disease) Anemia UTI (urinary tract infection) Hiatal hernia Essential tremor Hypertension Surgical History Surgical History History of shoulder replacement bilateral Status post total knee replacement, right History of knee replacement procedure of left knee Family History Family History (Updated 01/25/25 @ 03:33 by Radha Raines RN) Mother Glaucoma Father Glaucoma Emphysema lung Heart disease Social History Social History Smoking status: Never smoker Alcohol intake: never Alcohol use details: rare Substance use: never Substance use type: does not use Do You Feel Safe in your Home?: Yes Lack of Transportation: No Lack of Food: Never True Current Housing: I Have Housing Concerned About Future Housing: No Difficulty Paying Gas/Electric Bills: No Difficulty Paying for Meds: No Currently Unemployed: No Education: High School Diploma/GED Difficulty w/ Childcare or Family Care: No Living arrangements: assisted living Occupation/Education: retired Gender identity (if verbalized by the patient): Female Spiritual care concerns: No Meds Home Medications and Allergies Home Medications ?Medication ?Instructions ?Recorded ?Confirmed ?Type ferrous sulfate 325 mg (65 mg 1 tablet PO DAILY 04/09/22 01/25/25 History iron) tablet (FeroSul) fluoxetine 40 mg capsule 1 cap PO DAILY 04/09/22 01/25/25 History primidone 50 mg tablet 1 tablet PO Q12H 04/09/22 01/25/25 History ropinirole 4 mg tablet 1 tablet PO Q12H 04/09/22 01/25/25 History docusate sodium 100 mg capsule 300 mg PO HS 06/06/22 01/25/25 History (Stool Softener) calcium carbonate 600 mg PO BIDWM 01/25/25 01/25/25 History cholecalciferol (vitamin D3) 1,250 1,250 mcg PO WEEKLY 01/25/25 01/25/25 History mcg (50,000 unit) capsule dorzolamide 2 % eye drops 1 drp EACH EYE BID 01/25/25 01/25/25 History furosemide 20 mg tablet 20 mg PO .qod 01/25/25 01/25/25 History furosemide 40 mg tablet 40 mg PO DAILY 01/25/25 01/25/25 History latanoprost 0.005 % eye drops 1 drp EACH EYE QPM 01/25/25 01/25/25 History lisinopril 10 mg tablet 10 mg PO DAILY 01/25/25 01/25/25 History omeprazole 20 mg capsule,delayed 20 mg PO DAILY 01/25/25 01/25/25 History release spironolactone 25 mg tablet 25 mg PO DAILY 01/25/25 01/25/25 History timolol maleate 0.5 % eye drops 1 drp EACH EYE BID 01/25/25 01/25/25 History Allergies Allergy/AdvReac Type Severity Reaction Status Date / Time Cephalosporins Allergy Mild Swelling Verified 01/25/25 03:58 of Lip/Tongue/Throat Vital Signs Vital Signs - 24 hr 01/24/25 19:53 01/24/25 23:06 01/25/25 01:04 Temperature 97.8 F Pulse Rate 58 L 61 64 Respiratory Rate 14 14 15 Blood Pressure 129/53 L 135/52 L 122/56 L Pulse Oximetry 100 100 95 Oxygen Delivery Room Air 01/25/25 03:04 01/25/25 03:24 01/25/25 03:59 Temperature 97.6 F Pulse Rate 58 L 65 Respiratory Rate 15 18 Blood Pressure 116/59 L 125/47 L Pulse Oximetry 94 97 Oxygen Delivery Room Air 01/25/25 06:21 01/25/25 08:00 Temperature 97.7 F Pulse Rate 60 Respiratory Rate 16 Blood Pressure 113/50 L Pulse Oximetry 98 Oxygen Delivery Room Air Exam 2 Narrative: No pain to palpation of midline or paraspinal cervical spine No pain with active range of motion of neck Unless otherwise stated above, the patient's physical exam is as follows: General: -Well developed and well nourished. No a cute distress. Cooperative with exam. Mental status: -Awake and oriented to person, place, an d time. Integumentary: -No obvious skin lesions or masses Motor: -Muscle tone normal without spasticity o f flaccidity. No atrophy. No fasciculations. -No pronator drift -Right upper extremity: deltoid 5/5, bic eps 5/5, triceps 5/5, wrist extensors 5/5, wrist flexors 5/5, intrinsics 5/5 -Left upper extremity: deltoid 5/5, [place] ps 5/5, triceps 5/5, wrist extensors 5/5, wrist flexors 5/5, intrinsics 5/5 -Right lower extremity: iliopsoas 5/5, q uadriceps 5/5, hamstrings 5/5, tibialis anterior 5/5, gastroc-soleus 5/5, EHL 5/5 -Left lower extremity: iliopsoas 5/5, qu adriceps 5/5, hamstrings 5/5, tibialis anterior 5/5, gastroc-soleus 5/5, EHL 5/5 Sensory: -Intact to light touch throughout -Normal proprioception throughout Reflexes: -1-2+ DTR's throughout -No Rodriguez's, clonus, or Babinski bilat erally Results Labs 01/25/25 05:17 01/25/25 05:17 Labs: Short CBC 01/24/25 01/25/25 Range/Units 22:55 05:17 WBC 7.6 6.1 (4.5-10.0) K/mm3 Hgb 9.8 L 9.2 L (12.0-15.0) g/dL Hct 30.2 L 28.6 L (37.0-47.0) % Plt Count 254 245 (150-375) k/mm3 BMP 01/24/25 01/25/25 22:55 05:17 Sodium 138 135 L Potassium 4.3 3.9 Chloride 100 101 Carbon Dioxide 31 H 29 BUN 38 H 37 H Creatinine 1.64 H 1.59 H Glucose 88 79 Calcium 9.3 8.9 Liver Function 01/24/25 01/25/25 Range/Units 22:55 05:17 Total Bilirubin 0.2 0.3 (0.2-1.3) mg/dL AST 27 24 (14-36) U/L ALT 19 16 (6-35) U/L Alkaline Phosphatase 60 51 (38-126) U/L Albumin 3.5 3.1 L (3.5-5.1) g/dL Urine 01/24/25 Range/Units 23:28 Urine Color Yellow (Yellow) Urine Appearance Cloudy H (Clear) Urine pH 6.0 (5.0-9.0) Ur Specific [place] 1.014 (1.001-1.035) Urine Protein Trace (Negative) mg/dL Urine Glucose (UA) Negative (Negative) mg/dL Imaging My impression: I personally reviewed the CT cervical spine that shows erosive changes at C1-2 with a pannus at C1-2. There is a defect in the anterior arch of C1 which appears chronic as well as a chronic and well approximated fractures in the posterior arch of C1
--- NOTE | 2025-01-25 16:03 | PM.IMPN ---
Progress Note: A&P Assessment and Plan (1) Hypertension: Code(s): I10 - Essential (primary) hypertension Status: Acute (2) Acute UTI: Code(s): N39.0 - Urinary tract infection, site not specified Status: Acute (3) C1 cervical fracture: Code(s): S12.000A - Unspecified displaced fracture of first cervical vertebra, initial encounter for closed fracture Status: Acute Plan Acute and principal conditions 1. Cervical spine fracture, C1 2. Fall 3. Unstable gait 4. Acute renal insufficiency 5. UTI Rx: 1. NSY consult 2. Neck-brace; immobilize neck 3. Falls and safety precautions 4. IVFs; monitor renal function; avoid nephrotoxins 5. Levofloxacin; Urine cultures 6. neurosurgery NOted reviewed: previous CT cervical spine that she had in March 2023 through [facility]. The defect in the anterior arch and chronic appearing fractures in the posterior arch were present at that time as well. There is some widening of the defect in the anterior arch and some increased erosion of the C1-2 region compared to that scan, but I do not believe that she actually has an acute cervical fracture at this time. I cleared her cervical collar at bedside. If she were to develop neck pain, I would recommend replacing the collar and obtaining an MRI cervical spine. Otherwise, I do not recommend any further workup at this time. She can follow up as needed. 7. Pt/ot is ordered as neurosurgery cleared her and brace is off Time Spent With Patient Time with patient: 25 - 35 minutes Subjective Date/time seen: 01/25/25 16:03 Interval history: 84-year-old female with a medical history significant for IgA, depression, glaucoma, hypertension, GERD, restless leg syndrome admitted for a fall. She has problems with equilibrium which caused her to fall onto her bottom. She initially had some headache, but today she denies any significant pain in her head or neck. She denies any radicular pain to the arms or pain elsewhere throughout body. She is admitted for UTI and concern for a C1 fracture. Neurosurgery was consulted. Review of Systems Review of Systems: All systems reviewed & are unremarkable except as noted in HPI and below Exam Const: General: in distress HENMT: Ears: TM's normal bilaterally Face/Nose/Sinus: Normal nares present Mouth: Yes moist mucous membranes Eyes: General: appearance normal, both eyes and all related structures Sclera: sclerae normal Pupils: Equal, round and reactive pupils present Neck: Other: Collar in-situ Resp: Effort & Inspection: normal respiratory effort Auscultation: clear to auscultation bilaterally Cardio: Rate: regular rate Rhythm: regular rhythm Skin: General skin exam: normal color and rashes Rashes: rashes noted Wounds: no wounds Neuro: Cranial nerves: Yes Equal, round and reactive pupils present Speech: normal speech Motor exam (neuro): Normal motor muscle tone present throughout Extrem: General: normal to inspection and no pedal edema Psych: Mental Status: mental status grossly normal Affect: Anxious affect present Objective Data Vital Signs Vital Signs: Vital Signs - 24 hr 01/24/25 19:53 01/24/25 23:06 01/25/25 01:04 Temperature 97.8 F Pulse Rate 58 L 61 64 Respiratory Rate 14 14 15 Blood Pressure 129/53 L 135/52 L 122/56 L Pulse Oximetry 100 100 95 Oxygen Delivery Room Air 01/25/25 03:04 01/25/25 03:24 01/25/25 03:59 Temperature 97.6 F Pulse Rate 58 L 65 Respiratory Rate 15 18 Blood Pressure 116/59 L 125/47 L Pulse Oximetry 94 97 Oxygen Delivery Room Air 01/25/25 06:21 01/25/25 08:00 01/25/25 14:00 Temperature 97.7 F 98.8 F Pulse Rate 60 69 Respiratory Rate 16 18 Blood Pressure 113/50 L 116/51 L Pulse Oximetry 98 97 Oxygen Delivery Room Air Intake/Output Intake/Output: Intake & Output 01/22/25 01/23/25 01/24/25 01/25/25 23:59 23:59 23:59 23:59 Intake Total 1180 Balance 1180 Meds/Results Medications: Active Medications Generic Name Dose Route Start Last Admin Trade Name Freq PRN Reason Stop Dose Admin Acetaminophen 650 mg 01/25/25 04:05 Acetaminophen 325 Mg Tablet PO Q4H PRN Mild Pain (1-3) or Fever Hydrocodone Bitart/Acetaminophen 1 tab 01/25/25 00:14 01/25/25 00:40 Hydrocodone/Acetaminophen (*Crx) 5-325 Mg Tablet PO 1 tab Q4H PRN Administration Pain Rated 4-6 Heparin Sodium (Porcine) 5,000 units 01/25/25 09:00 01/25/25 08:40 Heparin Sodium 5,000 Units/Ml Vial SUB-Q 5,000 units Q12HR TONI Administration Levofloxacin/Dextrose 500 mg in 100 mls @ 66.667 mls/hr 01/27/25 00:00 Levaquin 500 Mg/D5w 100 Ml IVPB Q48H TONI Sodium Chloride 1,000 mls @ 75 mls/hr 01/25/25 04:05 01/25/25 04:41 Normal Saline Iv IV CONT 75 mls/hr .[id number] TONI Administration Melatonin 5 mg 01/25/25 04:05 Melatonin 5 Mg Tablet PO HS PRN Insomnia Prochlorperazine Edisylate 10 mg 01/25/25 04:05 Prochlorperazine Edisylate 10 Mg/2 Ml Vial IV PUSH Q6H PRN Nausea And Vomiting Radiology Results: ITS Impressions Cervical Spine CT 01/24/25 21:44 IMPRESSION: No acute intracranial findings. Brain atrophy with dilated ventricles which is not compatible with the degree of atrophy. Normal pressure hydrocephalus should be considered. CT brain wo con, CT cervical spine wo con Ordering provider: Crow Gregory MD History: . fall, head injury . Comparison: None. Technique: CT of the cervical spine was performed without contrast. Sagittal and coronal reformatted images were also obtained and reviewed. Automated exposure control and iterative reconstruction technique were employed. The dose-length product was 605.33 mGy-cm. FINDINGS: VERTEBRAE: Fracture of C1 is seen suggestive of Juliano fracture involving the anterior arch of C1 and both posterior arch sides. No fractures seen in the occipital condyles. Levoscoliosis. Widening of the distance between the posterior arch of C1 and C2 suggestive of ligamentous injury. DISC SPACES: Narrowing of the disc spaces C4-C5, C5-C6, C6-C7 and C7-T1. Multilevel facet joint disease. Multilevel uncovertebral joint osteoarthritic changes. Multilevel intervertebral foraminal narrowing. PARASPINOUS SOFT TISSUES: Hematoma posterior to the odontoid process is not excluded but this can be ligamentous calcification. Minimal opacification seen peripherally in the left lung apex suggestive of atelectasis versus focal pneumonia. IMPRESSION: Juliano fracture of C1 is noted. Widening of the distance between C1-C2 spinous processes which may indicate ligamentous injury. Multilevel degenerative disc disease seen. Physician: Crow Gregory MD Was notified with the result of the patient at 10:00 Pm on January 24, 2025. Head CT 01/24/25 21:44 IMPRESSION: No acute intracranial findings. Brain atrophy with dilated ventricles which is not compatible with the degree of atrophy. Normal pressure hydrocephalus should be considered. CT brain wo con, CT cervical spine wo con Ordering provider: Crow Gregory MD History: . fall, head injury . Comparison: None. Technique: CT of the cervical spine was performed without contrast. Sagittal and coronal reformatted images were also obtained and reviewed. Automated exposure control and iterative reconstruction technique were employed. The dose-length product was 605.33 mGy-cm. FINDINGS: VERTEBRAE: Fracture of C1 is seen suggestive of Juliano fracture involving the anterior arch of C1 and both posterior arch sides. No fractures seen in the occipital condyles. Levoscoliosis. Widening of the distance between the posterior arch of C1 and C2 suggestive of ligamentous injury. DISC SPACES: Narrowing of the disc spaces C4-C5, C5-C6, C6-C7 and C7-T1. Multilevel facet joint disease. Multilevel uncovertebral joint osteoarthritic changes. Multilevel intervertebral foraminal narrowing. PARASPINOUS SOFT TISSUES: Hematoma posterior to the odontoid process is not excluded but this can be ligamentous calcification. Minimal opacification seen peripherally in the left lung apex suggestive of atelectasis versus focal pneumonia. IMPRESSION: Juliano fracture of C1 is noted. Widening of the distance between C1-C2 spinous processes which may indicate ligamentous injury. Multilevel degenerative disc disease seen. Physician: Crow Gregory MD Was notified with the result of the patient at 10:00 Pm on January 24, 2025. Chest X-Ray 01/24/25 22:59 IMPRESSION: Opacification in the left lower lobe area which may indicate atelectasis versus pneumonia. Elevation of the hemidiaphragm cannot be excluded. Sliding hiatus hernia in this area also cannot be excluded. Further evaluation advised. Labs Labs: Laboratory Results - last 24 hr 01/24/25 01/24/25 01/25/25 22:55 23:28 05:17 WBC 7.6 6.1 RBC 3.04 L 2.86 L Hgb 9.8 L 9.2 L Hct 30.2 L 28.6 L MCV 99.3 100.0 MCH 32.2 32.2 MCHC 32.5 32.2 RDW 14.6 H 14.5 Plt Count 254 245 MPV 10.4 10.6 H Immature Gran % (Auto) 0.3 0.3 Neut % (Auto) 50.6 50.6 Lymph % (Auto) 36.2 34.1 [place] % (Auto) 9.1 H 10.1 H Eos % (Auto) 3.3 4.1 Baso % (Auto) 0.5 0.8 Lymph # (Auto) 2.73 2.09 [place] # (Auto) 0.7 H 0.6 Eos # (Auto) 0.3 0.3 Baso # (Auto) 0.0 0.1 Abs Immat Gran (auto) 0.02 0.02 Absolute Neuts (auto) 3.8 3.1 Absolute Nucleated RBC 0.000 0.000 Nucleated RBC % 0.0 0.0 Sodium 138 135 L Potassium 4.3 3.9 Chloride 100 101 Carbon Dioxide 31 H 29 Anion Gap 7 5 BUN 38 H 37 H Creatinine 1.64 H 1.59 H Estim Creat Clear Calc 20 20 Estimated GFR 30 L 31 L Glucose 88 79 Hemoglobin A1c Calcium 9.3 8.9 Total Bilirubin 0.2 0.3 AST 27 24 ALT 19 16 Alkaline Phosphatase 60 51 Total Protein 6.0 L 6.0 L Albumin 3.5 3.1 L Triglycerides 50 Cholesterol 141 LDL Cholesterol Direct 58 HDL Direct 48 Urine Color Yellow Urine Appearance Cloudy H Urine pH 6.0 Ur Specific [place] 1.014 Urine Protein Trace Urine Glucose (UA) Negative Urine Ketones Negative Ur Blood (Man) Non-hemolyzed trace H Urine Nitrate Negative Urine Bilirubin Negative Urine Urobilinogen 0.2 Leukocyte Esterase Rfl 3+ H Urine RBC 0-2 Urine WBC >100 H Ur Squamous Epith Cells None seen Urine Bacteria Trace Urine Casts 0-2 01/25/25 05:18 WBC RBC Hgb Hct MCV MCH MCHC RDW Plt Count MPV Immature Gran % (Auto) Neut % (Auto) Lymph % (Auto) [place] % (Auto) Eos % (Auto) Baso % (Auto) Lymph # (Auto) [place] # (Auto) Eos # (Auto) Baso # (Auto) Abs Immat Gran (auto) Absolute Neuts (auto) Absolute Nucleated RBC Nucleated RBC % Sodium Potassium Chloride Carbon Dioxide Anion Gap BUN Creatinine Estim Creat Clear Calc Estimated GFR Glucose Hemoglobin A1c 5.4 Calcium Total Bilirubin AST ALT Alkaline Phosphatase Total Protein Albumin Triglycerides Cholesterol LDL Cholesterol Direct HDL Direct Urine Color Urine Appearance Urine pH Ur Specific [place] Urine Protein Urine Glucose (UA) Urine Ketones Ur Blood (Man) Urine Nitrate Urine Bilirubin Urine Urobilinogen Leukocyte Esterase Rfl Urine RBC Urine WBC Ur Squamous Epith Cells Urine Bacteria Urine Casts
[2025-01-25] MEDS: CALCIUM CARBONATE (OSCAL) 500 MG TABLET PO (17:18)
[2025-01-25] MEDS: DORZOLAMIDE HCL 2% OPHTH DROPS 1 DROP EACH EYE (17:19)
[2025-01-25] MEDS: TIMOLOL MALEATE 0.5% OP SOLN 5 ML BOTTLE 1 DROP EACH EYE (17:19)
[2025-01-25] MEDS: LATANOPROST 0.005% OP SOLN 2.5 ML BTL 1 DROP EACH EYE (17:19)
[2025-01-25] MEDS: PRIMIDONE 50 MG TABLET PO (20:30)
[2025-01-25] MEDS: rOPINIRole HCL 1 MG TABLET 4 MG PO (20:30)
[2025-01-25 21:28] VITALS: BP 134/65; PULSE 65; RESP 16; TEMP 37.1; O2SAT 95
[2025-01-26 04:15] VITALS: BP 130/52; PULSE 60; RESP 16; TEMP 36.7; O2SAT 98
[2025-01-26 06:02] LABS: Basophils Percent Auto 0.6 % (0.2-1.2); Eosinophils Absolute Auto 0.2 K/mm3 (0-0.3); Eosinophils Percent Auto 3.4 % (0-4.4); Hematocrit 29.9 % (37.0-47.0); Hemoglobin 9.7 g/dL (12.0-15.0); Immature Granulocyte Absolute 0.02 K/mm3 (0.00-0.031); Immature Granulocyte Percent A 0.3 % (0-0.5); Lymphocytes Absolute Auto 2.07 K/mm3 (0.9-3.2); Lymphocytes Percent Auto 29.3 % (18.3-44.2); Mean Corpuscular HGB Conc 32.4 g/dl (32-36); Mean Corpuscular Hemoglobin 31.8 pg (26-34); Mean Platelet Volume 10.4 fl (7.4-10.4); Monocytes Absolute Auto 0.7 K/mm3 (0.1-0.6); Monocytes Percent Auto 9.5 % (2.6-8.5); Neutrophils Percent Auto 56.9 % (45.5-73.1); Platelet Count Result 255 k/mm3 (150-375); Red Blood Count 3.05 M/mm3 (4.2-5.4); Red Cell Distribution Width 14.6 % (11.5-14.5); White Blood Count 7.1 K/mm3 (4.5-10.0)
[2025-01-26 06:12] LABS: Alanine Aminotransferase 16 U/L (6-35); Albumin Level 3.2 g/dL (3.5-5.1); Alkaline Phosphatase 49 U/L (38-126); Anion Gap 8 mmol/L (4-12); Aspartate Amino Transferase 27 U/L (14-36); Bilirubin,Total 0.4 mg/dL (0.2-1.3); Blood Urea Nitrogen 30 mg/dL (7-17); Carbon Dioxide 25 mmol/L (22-30); Chloride 103 mmol/L (98-107); Estimated CRCL calculation 23 ml/min; Estimated Glomerular Filt Rate 36; Glucose 82 mg/dL (65-110); Potassium 3.9 mmol/L (3.4-5.0); Sodium 136 mmol/L (137-145)
--- NOTE | 2025-01-26 09:06 | P.PNIM_ITS ---
Progress Note: A&P Assessment and Plan (1) Hypertension: Code(s): I10 - Essential (primary) hypertension Status: Acute (2) Acute UTI: Code(s): N39.0 - Urinary tract infection, site not specified Status: Acute (3) C1 cervical fracture: Code(s): S12.000A - Unspecified displaced fracture of first cervical vertebra, initial encounter for closed fracture Status: Acute Plan Acute and principal conditions 1. Cervical spine fracture, C1 2. Fall 3. Unstable gait 4. Acute renal insufficiency 5. UTI Rx: 1. NSY consult 2. Neck-brace; immobilize neck 3. Falls and safety precautions 4. IVFs; monitor renal function; avoid nephrotoxins 5. Levofloxacin; Urine cultures 6. neurosurgery NOted reviewed: previous CT cervical spine that she had in March 2023 through [facility]. The defect in the anterior arch and chronic appearing fractures in the posterior arch were present at that time as well. There is some widening of the defect in the anterior arch and some increased erosion of the C1-2 region compared to that scan, but I do not believe that she actually has an acute cervical fracture at this time. I cleared her cervical collar at bedside. If she were to develop neck pain, I would recommend replacing the col lar and obtaining an MRI cervical spine. Otherwise, I do not recommend any further workup at this time. She can follow up as needed. 7. Pt/ot is ordered as neurosurgery cleared her and brace is off 8. may need rehab as pt was very weak. Time Spent With Patient Time with patient: 25 - 35 minutes Subjective Date/time seen: 01/26/25 09:06 Interval history: 84-year-old female with a medical history significant for IgA, depression, glaucoma, hypertension, GERD, restless leg syndrome admitted for a fall. She has problems with equilibrium which caused her to fall onto her bottom. She initially had some headache, but today she denies any significant pain in her head or neck. She denies any radicular pain to the arms or pain elsewhere throughout body. She is admitted for UTI and concern for a C1 fracture. Neurosurgery was consulted. Pt was cleared per neurosurgery yesterday. PT/OT was ordered but yet to see pt. Nursing tried to get pt up and she didnot do well. Might need rehab. will wait for an official PT recommendations. pt is eager to go home but understands that she might need rehab. Review of Systems Review of Systems: All systems reviewed & are unremarkable except as noted in HPI and below Exam Const: General: in distress HENMT: Ears: TM's normal bilaterally Face/Nose/Sinus: Normal nares present Mouth: Yes moist mucous membranes Eyes: General: appearance normal, both eyes and all related structures Sclera: sclerae normal Pupils: Equal, round and reactive pupils present Neck: Other: Collar in-situ Resp: Effort & Inspection: normal respiratory effort Auscultation: clear to auscultation bilaterally Cardio: Rate: regular rate Rhythm: regular rhythm Skin: General skin exam: normal color and rashes Rashes: rashes noted Wounds: no wounds Neuro: Cranial nerves: Yes Equal, round and reactive pupils present Speech: normal speech Motor exam (neuro): Normal motor muscle tone present throughout Extrem: General: normal to inspection and no pedal edema Psych: Mental Status: mental status grossly normal Affect: Anxious affect present Objective Data Vital Signs Vital Signs: Vital Signs - 24 hr 01/25/25 14:00 01/25/25 20:00 01/25/25 21:28 Temperature 98.8 F 98.8 F Pulse Rate 69 65 Respiratory Rate 18 16 Blood Pressure 116/51 L 134/65 Pulse Oximetry 97 95 Oxygen Delivery Room Air 01/26/25 04:15 Temperature 98.1 F Pulse Rate 60 Respiratory Rate 16 Blood Pressure 130/52 L Pulse Oximetry 98 Oxygen Delivery Intake/Output Intake/Output: Intake & Output 01/23/25 01/24/25 01/25/25 01/26/25 23:59 23:59 23:59 23:59 Intake Total 2680 150 Output Total 300 500 Balance 2380 -350 Meds/Results Medications: Active Medications Generic Name Dose Route Start Last Admin Trade Name Freq PRN Reason Stop Dose Admin Acetaminophen 650 mg 01/25/25 04:05 01/25/25 21:47 Acetaminophen 325 Mg Tablet PO 650 mg Q4H PRN Administration Mild Pain (1-3) or Fever Hydrocodone Bitart/Acetaminophen 1 tab 01/25/25 00:14 01/25/25 00:40 Hydrocodone/Acetaminophen (*Crx) 5-325 Mg Tablet PO 1 tab Q4H PRN Administration Pain Rated 4-6 Calcium Carbonate 500 mg 01/25/25 17:00 01/25/25 17:18 Calcium Carbonate (Oscal) 500 Mg Tablet PO 500 mg BIDWM [facility] Administration Docusate Sodium 300 mg 01/25/25 21:00 01/25/25 20:30 Docusate Sodium 100 Mg Capsule PO Not Given HS [facility] Dorzolamide HCl 1 drop 01/25/25 17:00 01/25/25 17:19 Dorzolamide Hcl 2% Ophth Drops EACH EYE 1 drop BID TONI Administration Ergocalciferol 50,000 units 01/28/25 09:00 Ergocalciferol 50,000 Units Capsule PO Au@0900 [facility] Ferrous Sulfate 325 mg 01/26/25 09:00 Ferrous Sulfate [address] BY MOUTH DAILY [facility] Fluoxetine HCl 40 mg 01/26/25 09:00 Fluoxetine Hcl 20 Mg Capsule PO DAILY [facility] Furosemide 40 mg 01/26/25 09:00 Furosemide 40 Mg Tablet PO DAILY [facility] Heparin Sodium (Porcine) 5,000 units 01/25/25 09:00 01/25/25 20:30 Heparin Sodium 5,000 Units/Ml Vial SUB-Q 5,000 units Q12HR TONI Administration Sodium Chloride 1,000 mls @ 75 mls/hr 01/25/25 04:05 01/25/25 17:30 Normal Saline Iv IV CONT 75 mls/hr .[id number] [facility] Administration Levofloxacin/Dextrose 750 mg in 150 mls @ 100 mls/hr 01/27/25 00:00 Levaquin 750 Mg/D5w 150 Ml IVPB Q48H [facility] Latanoprost 1 drop 01/25/25 18:00 01/25/25 17:19 Latanoprost 0.005% Op Soln 2.5 Ml Btl EACH EYE 1 drop QPM TONI Administration Lisinopril 10 mg 01/26/25 09:00 Lisinopril 10 Mg Tablet PO DAILY [facility] Melatonin 5 mg 01/25/25 04:05 Melatonin 5 Mg Tablet PO HS PRN Insomnia Pantoprazole Sodium 40 mg 01/26/25 09:00 Pantoprazole 40 Mg Tablet PO QAM [facility] Primidone 50 mg 01/25/25 21:00 01/25/25 20:30 Primidone 50 Mg Tablet PO 50 mg Q12H TONI Administration Prochlorperazine Edisylate 10 mg 01/25/25 04:05 Prochlorperazine Edisylate 10 Mg/2 Ml Vial IV PUSH Q6H PRN Nausea And Vomiting Ropinirole HCl 4 mg 01/25/25 21:00 01/25/25 20:30 Ropinirole Hcl 1 Mg Tablet PO 4 mg Q12H TONI Administration Spironolactone 25 mg 01/26/25 09:00 Spironolactone 25 Mg Tablet PO DAILY TONI Timolol Maleate 1 drop 01/25/25 17:00 01/25/25 17:19 Timolol Maleate 0.5% Op Soln 5 Ml Bottle EACH EYE 1 drop BID TONI Administration Radiology Results: ITS Impressions Cervical Spine CT 01/24/25 21:44 IMPRESSION: No acute intracranial findings. Brain atrophy with dilated ventricles which is not compatible with the degree of atrophy. Normal pressure hydrocephalus should be considered. CT brain wo con, CT cervical spine wo con Ordering provider: Crow Gregory MD History: . fall, head injury . Comparison: None. Technique: CT of the cervical spine was performed without contrast. Sagittal and coronal reformatted images were also obtained and reviewed. Automated exposure control and iterative reconstruction technique were employed. The dose- length product was 605.33 mGy-cm. FINDINGS: VERTEBRAE: Fracture of C1 is seen suggestive of Juliano fracture involving the anterior arch of C1 and both posterior arch sides. No fractures seen in the occipital condyles. Levoscoliosis. Widening of the distance between the posterior arch of C1 and C2 suggestive of ligamentous injury. DISC SPACES: Narrowing of the disc spaces C4-C5, C5-C6, C6-C7 and C7-T1. Multilevel facet joint disease. Multilevel uncovertebral joint osteoarthritic changes. Multilevel intervertebral foraminal narrowing. PARASPINOUS SOFT TISSUES: Hematoma posterior to the odontoid process is not excluded but this can be ligamentous calcification. Minimal opacification seen peripherally in the l eft lung apex suggestive of atelectasis versus focal pneumonia. IMPRESSION: Juliano fracture of C1 is noted. Widening of the distance between C1-C2 spinous processes which may indicate ligamentous injury. Multilevel degenerative disc disease seen. Physician: Crow Gregory MD Was notified with the result of the patient at 10:00 Pm on January 24, 2025. Head CT 01/24/25 21:44 IMPRESSION: No acute intracranial findings. Brain atrophy with dilated ventricles which is not compatible with the degree of atrophy. Normal pressure hydrocephalus should be considered. CT brain wo con, CT cervical spine wo con Ordering provider: Crow Gregory MD History: . fall, head injury . Comparison: None. Technique: CT of the cervical spine was performed without contrast. Sagittal and coronal reformatted images were also obtained and reviewed. Automated exposure control and iterative reconstruction technique were employed. The dose- length product was 605.33 mGy-cm. FINDINGS: VERTEBRAE: Fracture of C1 is seen suggestive of Juliano fracture involving the anterior arch of C1 and both posterior arch sides. No fractures seen in the occipital condyles. Levoscoliosis. Widening of the distance between the posterio r arch of C1 and C2 suggestive of ligamentous injury. DISC SPACES: Narrowing of the disc spaces C4-C5, C5-C6, C6-C7 and C7-T1. Multilevel facet joint disease. Multilevel uncovertebral joint osteoarthritic changes. Multilevel intervertebral foraminal narrowing. PARASPINOUS SOFT TISSUES: Hematoma posterior to the odontoid process is not excluded but this can be ligamentous calcification. Minimal opacification seen peripherally in the left lung apex suggestive of atelectasis versus focal pneumonia. IMPRESSION: Juliano fracture of C1 is noted. Widening of the distance between C1-C2 spinous processes which may indicate ligamentous injury. Multilevel degenerative disc disease seen. Physician: Crow Gregory MD Was notified with the result of the patient at 10:00 Pm on January 24, 2025. Chest X-Ray 01/24/25 22:59 IMPRESSION: Opacification in the left lower lobe area which may indicate atelectasis versus pneumonia. Elevation of the hemidiaphragm cannot be excluded. Sliding hiatus hernia in this area also cannot be excluded. Further evaluation advised. Labs Labs: Laboratory Results - last 24 hr 01/26/25 05:43 WBC 7.1 RBC 3.05 L Hgb 9.7 L Hct 29.9 L MCV 98.0 MCH 31.8 MCHC 32.4 RDW 14.6 H Plt Count 255 MPV 10.4 Immature Gran % (Auto) 0.3 Neut % (Auto) 56.9 Lymph % (Auto) 29.3 [place] % (Auto) 9.5 H Eos % (Auto) 3.4 Baso % (Auto) 0.6 Lymph # (Auto) 2.07 [place] # (Auto) 0.7 H Eos # (Auto) 0.2 Baso # (Auto) 0.0 Abs Immat Gran (auto) 0.02 Absolute Neuts (auto) 4.0 Absolute Nucleated RBC 0.000 Nucleated RBC % 0.0 Sodium 136 L Potassium 3.9 Chloride 103 Carbon Dioxide 25 Anion Gap 8 BUN 30 H Creatinine 1.41 H Estim Creat Clear Calc 23 Estimated GFR 36 L Glucose 82 Calcium 9.0 Total Bilirubin 0.4 AST 27 ALT 16 Alkaline Phosphatase 49 Total Protein 6.0 L Albumin 3.2 L
[2025-01-26] MEDS: FLUoxetine HCL 20 MG CAPSULE 40 MG PO (09:09)
[2025-01-26] MEDS: CALCIUM CARBONATE (OSCAL) 500 MG TABLET PO ×2 (09:09→17:00)
[2025-01-26] MEDS: rOPINIRole HCL 1 MG TABLET 4 MG PO ×2 (09:09→20:42)
[2025-01-26] MEDS: lisinopriL 10 MG TABLET PO (09:10)
[2025-01-26] MEDS: HEPARIN SODIUM 5,000 UNITS/ML VIAL 5000 UNITS SUB-Q ×2 (09:10→20:44)
[2025-01-26] MEDS: FERROUS SULFATE 325 MG TABLET DR BY MOUTH (09:10)
[2025-01-26] MEDS: PRIMIDONE 50 MG TABLET PO ×2 (09:10→20:42)
[2025-01-26] MEDS: PANTOPRAZOLE 40 MG TABLET PO (09:10)
[2025-01-26] MEDS: FUROSEMIDE 40 MG TABLET PO (09:10)
[2025-01-26] MEDS: DORZOLAMIDE HCL 2% OPHTH DROPS 1 DROP EACH EYE ×2 (09:10→18:15)
[2025-01-26] MEDS: SPIRONOLACTONE 25 MG TABLET PO (09:10)
[2025-01-26] MEDS: TIMOLOL MALEATE 0.5% OP SOLN 5 ML BOTTLE 1 DROP EACH EYE ×2 (09:11→18:15)
[2025-01-26 14:00] VITALS: BP 153/65; PULSE 65; RESP 18; TEMP 36.9; O2SAT 100
[2025-01-26] MEDS: LATANOPROST 0.005% OP SOLN 2.5 ML BTL 1 DROP EACH EYE (18:16)
[2025-01-26 20:00] VITALS: PULSE 61; RESP 16; O2SAT 96
[2025-01-26 20:32] VITALS: BP 124/51; PULSE 61; RESP 16; TEMP 37.1; O2SAT 96
[2025-01-26] MEDS: DOCUSATE SODIUM 100 MG CAPSULE 300 MG PO (20:42)
[2025-01-26] MEDS: HYDROcodone/acetaminophen (*CRX) 5-325 MG TABLET 1 TAB PO (20:47)
[2025-01-27] MEDS: levoFLOXacin 750 MG/D5W 150 ML 750 MG/150 ML BAG 100 MG IVPB (01:24)
[2025-01-27 05:43] LABS: Basophils Percent Auto 0.5 % (0.2-1.2); Eosinophils Absolute Auto 0.3 K/mm3 (0-0.3); Eosinophils Percent Auto 3.3 % (0-4.4); Hematocrit 30.5 % (37.0-47.0); Hemoglobin 10.2 g/dL (12.0-15.0); Immature Granulocyte Absolute 0.03 K/mm3 (0.00-0.031); Immature Granulocyte Percent A 0.4 % (0-0.5); Lymphocytes Absolute Auto 1.97 K/mm3 (0.9-3.2); Lymphocytes Percent Auto 25.8 % (18.3-44.2); Mean Corpuscular HGB Conc 33.4 g/dl (32-36); Mean Corpuscular Hemoglobin 32.6 pg (26-34); Mean Corpuscular Volume 97.4 fl (80-100); Mean Platelet Volume 10.3 fl (7.4-10.4); Monocytes Absolute Auto 0.8 K/mm3 (0.1-0.6); Monocytes Percent Auto 10.1 % (2.6-8.5); Neutrophils Absolute Auto 4.6 K/mm3 (1.3-6.7); Neutrophils Percent Auto 59.9 % (45.5-73.1); Platelet Count Result 253 k/mm3 (150-375); Red Blood Count 3.13 M/mm3 (4.2-5.4); Red Cell Distribution Width 14.3 % (11.5-14.5); White Blood Count 7.7 K/mm3 (4.5-10.0)
[2025-01-27 05:54] LABS: Alanine Aminotransferase 15 U/L (6-35); Albumin Level 3.2 g/dL (3.5-5.1); Alkaline Phosphatase 49 U/L (38-126); Anion Gap 7 mmol/L (4-12); Aspartate Amino Transferase 26 U/L (14-36); Bilirubin,Total 0.4 mg/dL (0.2-1.3); Blood Urea Nitrogen 29 mg/dL (7-17); Calcium 9.2 mg/dL (8.4-10.2); Carbon Dioxide 28 mmol/L (22-30); Chloride 98 mmol/L (98-107); Estimated CRCL calculation 24 ml/min; Estimated Glomerular Filt Rate 37; Glucose 85 mg/dL (65-110); Sodium 133 mmol/L (137-145)
[2025-01-27 06:00] VITALS: BP 156/67; PULSE 57; RESP 18; TEMP 37; O2SAT 97
--- NOTE | 2025-01-27 08:40 | PM.IMPN ---
Progress Note: A&P Assessment and Plan (1) Hypertension: Code(s): I10 - Essential (primary) hypertension Status: Acute (2) Acute UTI: Code(s): N39.0 - Urinary tract infection, site not specified Status: Acute (3) C1 cervical fracture: Code(s): S12.000A - Unspecified displaced fracture of first cervical vertebra, initial encounter for closed fracture Status: Acute Plan Acute and principal conditions 1. Cervical spine fracture, C1 2. Fall 3. Unstable gait 4. Acute renal insufficiency 5. UTI Rx: 1. NSY consult 2. Neck-brace; immobilize neck 3. Falls and safety precautions 4. IVFs; monitor renal function; avoid nephrotoxins 5. Levofloxacin; Urine cultures 6. neurosurgery NOted reviewed: previous CT cervical spine that she had in March 2023 through [facility]. The defect in the anterior arch and chronic appearing fractures in the posterior arch were present at that time as well. There is some widening of the defect in the anterior arch and some increased erosion of the C1-2 region compared to that scan, but I do not believe that she actually has an acute cervical fracture at this time. I cleared her cervical collar at bedside. If she were to develop neck pain, I would recommend replacing the collar and obtaining an MRI cervical spine. Otherwise, I do not recommend any further workup at this time. She can follow up as needed. 7. Pt/ot is ordered as neurosurgery cleared her and brace is off 8. may need rehab as pt was very weak. 01/27 working on placement. continue to monitor pain and treat if needed, monitor neurological status. Trend labs Time Spent With Patient Time with patient: 25 - 35 minutes Subjective Date/time seen: 01/27/25 08:40 Interval history: 84-year-old female with a medical history significant for IgA, depression, glaucoma, hypertension, GERD, restless leg syndrome admitted for a fall. She has problems with equilibrium which caused her to fall onto her bottom. She initially had some headache, but today she denies any significant pain in her head or neck. She denies any radicular pain to the arms or pain elsewhere throughout body. She is admitted for UTI and concern for a C1 fracture. Neurosurgery was consulted. Pt was cleared per neurosurgery yesterday. PT/OT was ordered but yet to see pt. Nursing tried to get pt up and she didnot do well. Might need rehab. will wait for an official PT recommendations. pt is eager to go home but understands that she might need rehab. 01/27 pt is seen and examined. Pt/Ot recommend SNF. Working with care coordination for placement. Pt is to continue to work with pt/ot while here. pain control. Review of Systems Review of Systems: All systems reviewed & are unremarkable except as noted in HPI and below Exam Const: General: in distress HENMT: Ears: TM's normal bilaterally Face/Nose/Sinus: Normal nares present Mouth: Yes moist mucous membranes Eyes: General: appearance normal, both eyes and all related structures Sclera: sclerae normal Pupils: Equal, round and reactive pupils present Neck: Other: Collar in-situ Resp: Effort & Inspection: normal respiratory effort Auscultation: clear to auscultation bilaterally Cardio: Rate: regular rate Rhythm: regular rhythm Skin: General skin exam: normal color and rashes Rashes: rashes noted Wounds: no wounds Neuro: Cranial nerves: Yes Equal, round and reactive pupils present Speech: normal speech Motor exam (neuro): Normal motor muscle tone present throughout Extrem: General: normal to inspection and no pedal edema Psych: Mental Status: mental status grossly normal Affect: Anxious affect present Objective Data Vital Signs Vital Signs: Vital Signs - 24 hr 01/26/25 09:35 01/26/25 11:32 01/26/25 14:00 Temperature 98.5 F Pulse Rate 65 Respiratory Rate 18 Blood Pressure 153/65 H Pulse Oximetry 100 Oxygen Delivery Room Air Room Air 01/26/25 20:00 01/26/25 20:32 01/27/25 06:00 Temperature 98.8 F 98.6 F Pulse Rate 61 61 57 L Respiratory Rate 16 16 18 Blood Pressure 124/51 L 156/67 H Pulse Oximetry 96 96 97 Oxygen Delivery Room Air Intake/Output Intake/Output: Intake & Output 01/24/25 01/25/25 01/26/25 01/27/25 23:59 23:59 23:59 23:59 Intake Total 2680 3450 500 Output Total 300 1500 850 Balance 2380 1950 -350 Meds/Results Medications: Active Medications Generic Name Dose Route Start Last Admin Trade Name Freq PRN Reason Stop Dose Admin Acetaminophen 650 mg 01/25/25 04:05 01/25/25 21:47 Acetaminophen 325 Mg Tablet PO 650 mg Q4H PRN Administration Mild Pain (1-3) or Fever Hydrocodone Bitart/Acetaminophen 1 tab 01/25/25 00:14 01/26/25 20:47 Hydrocodone/Acetaminophen (*Crx) 5-325 Mg Tablet PO 1 tab Q4H PRN Administration Pain Rated 4-6 Calcium Carbonate 500 mg 01/25/25 17:00 01/26/25 17:00 Calcium Carbonate (Oscal) 500 Mg Tablet PO 500 mg BIDWM TONI Administration Docusate Sodium 300 mg 01/25/25 21:00 01/26/25 20:42 Docusate Sodium 100 Mg Capsule PO 300 mg HS TONI Administration Dorzolamide HCl 1 drop 01/25/25 17:00 01/26/25 18:15 Dorzolamide Hcl 2% Ophth Drops EACH EYE 1 drop BID TONI Administration Ergocalciferol 50,000 units 01/28/25 09:00 Ergocalciferol 50,000 Units Capsule PO Au@0900 [facility] Ferrous Sulfate 325 mg 01/26/25 09:00 01/26/25 09:10 Ferrous Sulfate [address] BY MOUTH 325 mg DAILY TONI Administration Fluoxetine HCl 40 mg 01/26/25 09:00 01/26/25 09:09 Fluoxetine Hcl 20 Mg Capsule PO 40 mg DAILY TONI Administration Furosemide 40 mg 01/26/25 09:00 01/26/25 09:10 Furosemide 40 Mg Tablet PO 40 mg DAILY TONI Administration Heparin Sodium (Porcine) 5,000 units 01/25/25 09:00 01/26/25 20:44 Heparin Sodium 5,000 Units/Ml Vial SUB-Q 5,000 units Q12HR TONI Administration Levofloxacin/Dextrose 750 mg in 150 mls @ 100 mls/hr 01/27/25 00:00 01/27/25 01:24 Levaquin 750 Mg/D5w 150 Ml IVPB 100 mls/hr Q48H TONI Administration Latanoprost 1 drop 01/25/25 18:00 01/26/25 18:16 Latanoprost 0.005% Op Soln 2.5 Ml Btl EACH EYE 1 drop QPM TONI Administration Lisinopril 10 mg 01/26/25 09:00 01/26/25 09:10 Lisinopril 10 Mg Tablet PO 10 mg DAILY TONI Administration Melatonin 5 mg 01/25/25 04:05 Melatonin 5 Mg Tablet PO HS PRN Insomnia Pantoprazole Sodium 40 mg 01/26/25 09:00 01/26/25 09:10 Pantoprazole 40 Mg Tablet PO 40 mg QAM TONI Administration Primidone 50 mg 01/25/25 21:00 01/26/25 20:42 Primidone 50 Mg Tablet PO 50 mg Q12H TONI Administration Prochlorperazine Edisylate 10 mg 01/25/25 04:05 Prochlorperazine Edisylate 10 Mg/2 Ml Vial IV PUSH Q6H PRN Nausea And Vomiting Ropinirole HCl 4 mg 01/25/25 21:00 01/26/25 20:42 Ropinirole Hcl 1 Mg Tablet PO 4 mg Q12H TONI Administration Spironolactone 25 mg 01/26/25 09:00 01/26/25 09:10 Spironolactone 25 Mg Tablet PO 25 mg DAILY TONI Administration Timolol Maleate 1 drop 01/25/25 17:00 01/26/25 18:15 Timolol Maleate 0.5% Op Soln 5 Ml Bottle EACH EYE 1 drop BID TONI Administration Radiology Results: ITS Impressions Cervical Spine CT 01/24/25 21:44 IMPRESSION: No acute intracranial findings. Brain atrophy with dilated ventricles which is not compatible with the degree of atrophy. Normal pressure hydrocephalus should be considered. CT brain wo con, CT cervical spine wo con Ordering provider: Crow Gregory MD History: . fall, head injury . Comparison: None. Technique: CT of the cervical spine was performed without contrast. Sagittal and coronal reformatted images were also obtained and reviewed. Automated exposure control and iterative reconstruction technique were employed. The dose-length product was 605.33 mGy-cm. FINDINGS: VERTEBRAE: Fracture of C1 is seen suggestive of Juliano fracture involving the anterior arch of C1 and both posterior arch sides. No fractures seen in the occipital condyles. Levoscoliosis. Widening of the distance between the posterior arch of C1 and C2 suggestive of ligamentous injury. DISC SPACES: Narrowing of the disc spaces C4-C5, C5-C6, C6-C7 and C7-T1. Multilevel facet joint disease. Multilevel uncovertebral joint osteoarthritic changes. Multilevel intervertebral foraminal narrowing. PARASPINOUS SOFT TISSUES: Hematoma posterior to the odontoid process is not excluded but this can be ligamentous calcification. Minimal opacification seen peripherally in the left lung apex suggestive of atelectasis versus focal pneumonia. IMPRESSION: Juliano fracture of C1 is noted. Widening of the distance between C1-C2 spinous processes which may indicate ligamentous injury. Multilevel degenerative disc disease seen. Physician: Crow Gregory MD Was notified with the result of the patient at 10:00 Pm on January 24, 2025. Head CT 01/24/25 21:44 IMPRESSION: No acute intracranial findings. Brain atrophy with dilated ventricles which is not compatible with the degree of atrophy. Normal pressure hydrocephalus should be considered. CT brain wo con, CT cervical spine wo con Ordering provider: Crow Gregory MD History: . fall, head injury . Comparison: None. Technique: CT of the cervical spine was performed without contrast. Sagittal and coronal reformatted images were also obtained and reviewed. Automated exposure control and iterative reconstruction technique were employed. The dose-length product was 605.33 mGy-cm. FINDINGS: VERTEBRAE: Fracture of C1 is seen suggestive of Juliano fracture involving the anterior arch of C1 and both posterior arch sides. No fractures seen in the occipital condyles. Levoscoliosis. Widening of the distance between the posterior arch of C1 and C2 suggestive of ligamentous injury. DISC SPACES: Narrowing of the disc spaces C4-C5, C5-C6, C6-C7 and C7-T1. Multilevel facet joint disease. Multilevel uncovertebral joint osteoarthritic changes. Multilevel intervertebral foraminal narrowing. PARASPINOUS SOFT TISSUES: Hematoma posterior to the odontoid process is not excluded but this can be ligamentous calcification. Minimal opacification seen peripherally in the left lung apex suggestive of atelectasis versus focal pneumonia. IMPRESSION: Juliano fracture of C1 is noted. Widening of the distance between C1-C2 spinous processes which may indicate ligamentous injury. Multilevel degenerative disc disease seen. Physician: Crow Gregory MD Was notified with the result of the patient at 10:00 Pm on January 24, 2025. Chest X-Ray 01/24/25 22:59 IMPRESSION: Opacification in the left lower lobe area which may indicate atelectasis versus pneumonia. Elevation of the hemidiaphragm cannot be excluded. Sliding hiatus hernia in this area also cannot be excluded. Further evaluation advised. Labs Labs: Laboratory Results - last 24 hr 01/27/25 05:19 WBC 7.7 RBC 3.13 L Hgb 10.2 L Hct 30.5 L MCV 97.4 MCH 32.6 MCHC 33.4 RDW 14.3 Plt Count 253 MPV 10.3 Immature Gran % (Auto) 0.4 Neut % (Auto) 59.9 Lymph % (Auto) 25.8 Scott % (Auto) 10.1 H Eos % (Auto) 3.3 Baso % (Auto) 0.5 Lymph # (Auto) 1.97 Scott # (Auto) 0.8 H Eos # (Auto) 0.3 Baso # (Auto) 0.0 Abs Immat Gran (auto) 0.03 Absolute Neuts (auto) 4.6 Absolute Nucleated RBC 0.000 Nucleated RBC % 0.0 Sodium 133 L Potassium 4.0 Chloride 98 Carbon Dioxide 28 Anion Gap 7 BUN 29 H Creatinine 1.35 H Estim Creat Clear Calc 24 Estimated GFR 37 L Glucose 85 Calcium 9.2 Total Bilirubin 0.4 AST 26 ALT 15 Alkaline Phosphatase 49 Total Protein 6.0 L Albumin 3.2 L
[2025-01-27] MEDS: FERROUS SULFATE 325 MG TABLET DR BY MOUTH (10:07)
[2025-01-27] MEDS: PRIMIDONE 50 MG TABLET PO ×2 (10:07→21:18)
[2025-01-27] MEDS: SPIRONOLACTONE 25 MG TABLET PO (10:07)
[2025-01-27] MEDS: PANTOPRAZOLE 40 MG TABLET PO (10:07)
[2025-01-27] MEDS: lisinopriL 10 MG TABLET PO (10:07)
[2025-01-27] MEDS: FUROSEMIDE 40 MG TABLET PO (10:07)
[2025-01-27] MEDS: CALCIUM CARBONATE (OSCAL) 500 MG TABLET PO ×2 (10:07→17:16)
[2025-01-27] MEDS: FLUoxetine HCL 20 MG CAPSULE 40 MG PO (10:07)
[2025-01-27] MEDS: DORZOLAMIDE HCL 2% OPHTH DROPS 1 DROP EACH EYE ×2 (10:08→17:16)
[2025-01-27] MEDS: HEPARIN SODIUM 5,000 UNITS/ML VIAL 5000 UNITS SUB-Q ×2 (10:09→21:17)
[2025-01-27] MEDS: TIMOLOL MALEATE 0.5% OP SOLN 5 ML BOTTLE 1 DROP EACH EYE ×2 (10:09→17:16)
[2025-01-27] MEDS: ACETAMINOPHEN 325 MG TABLET 650 MG PO (10:16)
[2025-01-27] MEDS: rOPINIRole HCL 1 MG TABLET 4 MG PO ×2 (10:41→21:18)
[2025-01-27] MEDS: PROCHLORPERAZINE EDISYLATE 10 MG/2 ML VIAL IV PUSH (12:35)
[2025-01-27 13:17] VITALS: O2SAT 95
[2025-01-27] MEDS: MECLIZINE HCL 6.25 MG TABLET PO (13:30)
[2025-01-27 14:00] VITALS: BP 150/69; PULSE 74; RESP 20; TEMP 36.8; O2SAT 95
[2025-01-27] MEDS: SODIUM CHLORIDE 0.9% IV 1,000 ML 50 ML IV CONT (17:16)
[2025-01-27] MEDS: LATANOPROST 0.005% OP SOLN 2.5 ML BTL 1 DROP EACH EYE ×2 (17:16→21:19)
[2025-01-27 20:44] VITALS: BP 158/78; PULSE 71; RESP 18; TEMP 37; O2SAT 97
[2025-01-27] MEDS: DOCUSATE SODIUM 100 MG CAPSULE 300 MG PO (21:18)
[2025-01-28 05:46] LABS: Basophils Percent Auto 0.4 % (0.2-1.2); Eosinophils Absolute Auto 0.1 K/mm3 (0-0.3); Eosinophils Percent Auto 0.9 % (0-4.4); Hematocrit 33.2 % (37.0-47.0); Hemoglobin 11.1 g/dL (12.0-15.0); Immature Granulocyte Absolute 0.02 K/mm3 (0.00-0.031); Immature Granulocyte Percent A 0.2 % (0-0.5); Lymphocytes Absolute Auto 1.95 K/mm3 (0.9-3.2); Lymphocytes Percent Auto 19.3 % (18.3-44.2); Mean Corpuscular HGB Conc 33.4 g/dl (32-36); Mean Corpuscular Volume 95.7 fl (80-100); Mean Platelet Volume 10.1 fl (7.4-10.4); Monocytes Absolute Auto 1.2 K/mm3 (0.1-0.6); Monocytes Percent Auto 11.5 % (2.6-8.5); Neutrophils Absolute Auto 6.9 K/mm3 (1.3-6.7); Neutrophils Percent Auto 67.7 % (45.5-73.1); Platelet Count Result 282 k/mm3 (150-375); Red Blood Count 3.47 M/mm3 (4.2-5.4); Red Cell Distribution Width 13.9 % (11.5-14.5); White Blood Count 10.1 K/mm3 (4.5-10.0)
[2025-01-28 06:00] VITALS: BP 151/81; PULSE 76; RESP 16; TEMP 37.1; O2SAT 94
[2025-01-28 06:00] LABS: Alanine Aminotransferase 22 U/L (6-35); Albumin Level 3.5 g/dL (3.5-5.1); Alkaline Phosphatase 47 U/L (38-126); Anion Gap 7 mmol/L (4-12); Aspartate Amino Transferase 42 U/L (14-36); Bilirubin,Total 0.6 mg/dL (0.2-1.3); Blood Urea Nitrogen 27 mg/dL (7-17); Calcium 9.6 mg/dL (8.4-10.2); Carbon Dioxide 31 mmol/L (22-30); Chloride 95 mmol/L (98-107); Estimated CRCL calculation 22 ml/min; Estimated Glomerular Filt Rate 34; Glucose 100 mg/dL (65-110); Potassium 4.4 mmol/L (3.4-5.0); Sodium 133 mmol/L (137-145)
[2025-01-28 08:00] VITALS: O2SAT 96
[2025-01-28] MEDS: FLUoxetine HCL 20 MG CAPSULE 40 MG PO (09:12)
[2025-01-28] MEDS: FERROUS SULFATE 325 MG TABLET DR BY MOUTH (09:13)
[2025-01-28] MEDS: PANTOPRAZOLE 40 MG TABLET PO (09:13)
[2025-01-28] MEDS: SPIRONOLACTONE 25 MG TABLET PO (09:13)
[2025-01-28] MEDS: ACETAMINOPHEN 325 MG TABLET 650 MG PO (09:13)
[2025-01-28] MEDS: FUROSEMIDE 40 MG TABLET PO (09:13)
[2025-01-28] MEDS: lisinopriL 10 MG TABLET PO (09:13)
[2025-01-28] MEDS: PRIMIDONE 50 MG TABLET PO (09:13)
[2025-01-28] MEDS: rOPINIRole HCL 1 MG TABLET 4 MG PO (09:13)
[2025-01-28] MEDS: CALCIUM CARBONATE (OSCAL) 500 MG TABLET PO (09:13)
[2025-01-28] MEDS: HEPARIN SODIUM 5,000 UNITS/ML VIAL 5000 UNITS SUB-Q (09:14)
[2025-01-28] MEDS: DORZOLAMIDE HCL 2% OPHTH DROPS 1 DROP EACH EYE (09:15)
[2025-01-28] MEDS: TIMOLOL MALEATE 0.5% OP SOLN 5 ML BOTTLE 1 DROP EACH EYE (09:15)
--- NOTE | 2025-01-28 09:25 | P.DS_ITS ---
DS: Admitting Diagnosis Discharge Date 01/28 Admitting Diagnosis fall DS: Discharge Diagnosis Discharge Diagnosis (1) Hypertension: Code(s): I10 - Essential (primary) hypertension Status: Acute (2) Acute UTI: Code(s): N39.0 - Urinary tract infection, site not specified Status: Acute (3) C1 cervical fracture: Code(s): S12.000A - Unspecified displaced fracture of first cervical vertebra, initial encounter for closed fracture Status: Acute DS: Summary Hospital Course Hospital Course: 84-year-old female with a medical history significant for IgA, depression, glaucoma, hypertension, GERD, restless leg syndrome admitted for a fall. She has problems with equilibrium which caused her to fall onto her bottom. She initially had some headache, but today she denies any significant pain in her head or neck. She is admitted for UTI and concern for a C1 fracture. Neurosurgery was consulted. DR Yareli Meza saw pt on 01/25- : Ms. Garg is an 84-year-old female who was admitted to the hospital last night after having a ground level fall yesterday with concern for a C1 fracture. She has no neck pain to palpation or with active range of motion on exam. I reviewed CT cervical spine that shows erosive changes at C1 to the pannus, a defect in the anterior arch of C1, as well as chronic appearing, well approximated fractures in the posterior arch. I was able to access the previous CT cervical spine that she had in March [address] [facility]. The defect in the anterior arch and chronic appearing fractures in the posterior arch were present at that time as well. There is some widening of the defect in the anterior arch and some increased erosion of the C1-2 region compared to that scan, but I do not believe that she actually has an acute cervical fracture at this time. I cleared her cervical collar at bedside. If she were to develop neck pain, I would recommend replacing the collar and obtaining an MRI cervical spine. Otherwise, I do not recommend any further workup at this time. She can follow up as needed. PT/OT was ordered and pt was working with them. 01/27 pt felt a little dizzy and somewhat confused per nursing report. CT head was ordered and completed which was negative for any acute bleed. Pt is safe for discharge today to go to rehab to continue to work wit PT/ot. She was started on levaquin 750 mg q48h, got two doses so far- 01/25, 01/27, will send rx for remaining doses to complete the tx. Status at Discharge Functional status at discharge: uses cane/walker Overall status at discharge: patient is progressing back to baseline Time Spent with Patient Time attestation: Total time spent providing and/or coordinating discharge services: Time spent: Greater than 30 minutes Exam Const: General: in distress HENMT: Ears: TM's normal bilaterally Face/Nose/Sinus: Normal nares present Mouth: Yes moist mucous membranes Eyes: General: appearance normal, both eyes and all related structures Sclera: sclerae normal Pupils: Equal, round and reactive pupils present Neck: Other: Collar in-situ Resp: Effort & Inspection: normal respiratory effort Auscultation: clear to auscultation bilaterally Cardio: Rate: regular rate Rhythm: regular rhythm GI: GI Palp: Yes Soft to palpation Skin: General skin exam: normal color and rashes Rashes: rashes noted Wounds: no wounds Neuro: Cranial nerves: Yes Equal, round and reactive pupils present Speech: normal speech Motor exam (neuro): Normal motor muscle tone present throughout Extrem: General: normal to inspection and no pedal edema Psych: Mental Status: mental status grossly normal Affect: Anxious affect present DS: Data Data Completed and Pending Labs on day of discharge: Labs from last 24 hours 01/28/25 05:40 WBC 10.1 H RBC 3.47 L Hgb 11.1 L Hct 33.2 L MCV 95.7 MCH 32.0 MCHC 33.4 RDW 13.9 Plt Count 282 MPV 10.1 Immature Gran % (Auto) 0.2 Neut % (Auto) 67.7 Lymph % (Auto) 19.3 [place] % (Auto) 11.5 H Eos % (Auto) 0.9 Baso % (Auto) 0.4 Lymph # (Auto) 1.95 [place] # (Auto) 1.2 H Eos # (Auto) 0.1 Baso # (Auto) 0.0 Abs Immat Gran (auto) 0.02 Absolute Neuts (auto) 6.9 H Absolute Nucleated RBC 0.000 Nucleated RBC % 0.0 Sodium 133 L Potassium 4.4 Chloride 95 L Carbon Dioxide 31 H Anion Gap 7 BUN 27 H Creatinine 1.45 H Estim Creat Clear Calc 22 Estimated GFR 34 L Glucose 100 Calcium 9.6 Total Bilirubin 0.6 AST 42 H ALT 22 Alkaline Phosphatase 47 Total Protein 7.0 Albumin 3.5 Discharge Plan Discharge Attending physician on discharge: Ton Antunez Consulting providers: Yareli Meza Discharging Clinician: Suzanne Smith Patient Disposition: [facility] Activity: february shower Diet: regular Patient Language: Turkmen Follow-up/Referrals: Clay,Nile Brunson MD [Primary Care Provider] - 2 Weeks Discharge Medications: New levofloxacin 750 mg tablet 750 mg PO Q48H 3 Days Qty: 3 0RF Continued primidone 50 mg tablet 1 tablet PO Q12H fluoxetine 40 mg capsule 1 cap PO DAILY ropinirole 4 mg tablet 1 tablet PO Q12H ferrous sulfate [FeroSul] 325 mg (65 mg iron) tablet 1 tablet PO DAILY docusate sodium [Stool Softener] 100 mg Capsule 300 mg PO HS calcium carbonate 600 mg calcium (1,500 mg) tablet 600 mg PO BIDWM dorzolamide 2 % drops 1 drp EACH EYE BID furosemide 20 mg tablet 20 mg PO .qod latanoprost 0.005 % drops 1 drp EACH EYE QPM lisinopril 10 mg tablet 10 mg PO DAILY omeprazole 20 mg capsule,delayed release(DR/EC) 20 mg PO DAILY spironolactone 25 mg tablet 25 mg PO DAILY timolol maleate 0.5 % drops 1 drp EACH EYE BID cholecalciferol (vitamin D3) 1,250 mcg (50,000 unit) capsule 1,250 mcg PO WEEKLY Rx Instructions: on Sundays Discontinued furosemide 40 mg tablet 40 mg PO DAILY Date of admission: 01/25/25 17:39 Primary Care Provider: Chadd,Nile Brunson Admitting Provider: Cortes Osuna Attending physician on admission: Cortes Osuna Condition: Stable Hospitalist MIPS Heart Failure (Exclusion) Patient has history of Heart Transplant or Left Ventricular Assistive Device?: No IF YES, STOP HERE Heart Failure (Qualifier) Patient has current or prior documentation of LVEF less than or equal to 40%, or mod/servere depressed LVSF?: No IF NO, STOP HERE
[2025-01-28] MEDS: ERGOCALCIFEROL 50,000 UNITS CAPSULE 50000 UNITS PO (09:31)
[2025-01-28 14:00] VITALS: BP 130/68; PULSE 78; RESP 16; TEMP 36.6; O2SAT 97
== END 2025-01-28 14:46 | DRG 552 ==
LOC: ANHED 23:06 → ANH3MEDSUR 01-25 01:06 → ANH3MED 01-25 03:21
PROVIDERS: Admitting Provider Internal Medicine; Emergency Provider Emergency Medicine; PCP Internal Medicine; Visit Provider Nurse Practitioner
DX: S12.030A Displaced posterior arch fracture of first cervical vertebra, initial encounter for closed fracture (principal); N39.0 Urinary tract infection, site not specified; W18.30XA Fall on same level, unspecified, initial encounter; I10 Essential (primary) hypertension; H40.9 Unspecified glaucoma; G25.81 Restless legs syndrome; F32.A Depression, unspecified; D64.9 Anemia, unspecified; K44.9 Diaphragmatic hernia without obstruction or gangrene; N28.9 Disorder of kidney and ureter, unspecified; K21.9 Gastro-esophageal reflux disease without esophagitis; Z96.612 Presence of left artificial shoulder joint; Z96.611 Presence of right artificial shoulder joint; Z96.653 Presence of artificial knee joint, bilateral
CPT/HCPCS: 36415; 70450; 71045; 72125; 80053; 80061; 81001; 83036; 85025; 87086; 96361; 96374; 97110; 97162; 97166; 97530; 99285; A9270; G0378; J0780; J1644; J1956; J7030

== ENCOUNTER 2025-02-13 00:54 | Emergency (ER) | payer BC, SELFPAY ==
[2025-02-13] VITALS (8 sets, daily range): BP systolic 117–142; BP diastolic 60–89; PULSE 67–76; RESP 14–19; TEMP 36.6–36.7; O2SAT 95–98
--- NOTE | ~2025-02-13 | CT_ITS ---
CT head without contrast Indication: Status post fall COMPARISON: 01/27/2025 Technique: Serial scans were obtained through the brain without the administration of contrast. Dose reduction technique was used on this scan by utilizing automated exposure control and iterative recon struction technique. The dose-length product (DLP) was 681.00 mGy-cm. Findings: There is no evidence of intracranial hemorrhage, mass lesion, or acute infarct. The ventri cles and subarachnoid spaces are dilated, consistent with moderate atrophy. Low attenuation regions are seen within the periventricular white matter bilaterally, likely representing changes from chroni c microvascular ischemic disease. There is no evidence of edema, mass effect or midline shift. The visualized paranasal sinuses and mastoid air cells are clear. Impression: No intracranial hemorrhage, mass, or acute infarct. Atrophy and chronic white matter changes, as above. Reviewed, dictated and finalized at location . Impression: No intracranial hemorrhage, mass, or acute infarct. Atrophy and chronic white matter changes, as above.
--- NOTE | ~2025-02-13 | CT_ITS ---
Noncontrast CT scan of the cervical spine Technique: Multiple contiguous axial [address] images of the cervical spine were obtained and rec onstructed in 2D sagittal and coronal planes on the acquisition scanner. Dose reduction technique was used on this scan by utilizing automated exposure control, adjustment of the mA and/or kV according to patient size. The dose-length product (DLP) was 404.64 mGy-cm. Clinical History: Pain COMPARISON: 01/24/2025 Findings: Again identified is comminuted fracture of C1 involving the left and right posterior arch a spect as well as the anterior arch at the midline, with significant displacement of the fracture frag ments. There is associated anterior displacement of the spinal column overall, with the odontoid proc ess located immediately inferior to the clivus. Alignment is stable from prior exam. Stable suspected moderate canal stenosis at the C1-C2 level related to the anterior displacement. Stable degenerative changes otherwise Stable reversal normal cervical lordosis. Stable grade 1 mishel listhesis of C3 over C4. There is advanced degenerative disc narrowing from C4 through C7. There is e xtensive facet arthropathy and cervical spine especially the upper cervical spine. There is probable severe right neural foraminal narrowing at C3-C4. There is bilateral neural foraminal narrowing at C4 -C5. There is left neural foraminal narrowing at C5-C6 and C6-C7. No prevertebral soft tissue swellin g. Impression: Stable displaced burst fracture of C1, with significant anterior displacement of the anterior spinal, unchanged from prior exam. Neurosurgical consultation advised if not already performed. Suspected moderate canal stenosis at the C1-C2 level related to the anterior displacement. Stable reversal of the normal cervical lordosis with associated extensive degenerative spondylitic ch anges. Reviewed, dictated and finalized at location M. Impression: Stable displaced burst fracture of C1, with significant anterior displacement o f the anterior spinal, unchanged from prior exam. Neurosurgical consultation ad vised if not already performed. Suspected moderate canal stenosis at the C1-C2 level related to the anterior di splacement. Stable reversal of the normal cervical lordosis with associated extensive degen erative spondylitic changes.
--- NOTE | ~2025-02-13 | XR_ITS ---
Right Shoulder Technique: AP and scapular Y views were obtained. Clinical History: Pain Findings: No fracture or dislocation is seen. Right shoulder arthroplasty in place. Soft tissues are unremarkable. Impression: No acute abnormality. Right shoulder arthroplasty. Reviewed, dictated and finalized at location . Impression: No acute abnormality. Right shoulder arthroplasty.
--- NOTE | 2025-02-13 06:08 | ED_ITS ---
HPI - Fall General Chief Complaint: Fall <Zach Heard MD - Last Filed: 02/13/25 20:36> Stated Complaint: fall, hit head <Zach Heard MD - Last Filed: 02/13/25 20:36> Time Seen by Provider: 02/13/25 05:52 <Zach Heard MD - Last Filed: 02/13/25 20:36> History of Present Illness HPI Narrative: 84-year-old female with a past medical history including hypertension, GERD, old C1 fracture. Patient presents to the emergency department chief complaint of mechanical fall. Patient states that she was getting up from the toilet and took a sharp turn and will fell and lost her balance. She landed and struck her head and neck against the ground. Did not lose consciousness. Does not take any blood thinner medications. Staff assisted the patient up to her feet. Patient was recently seen here and admitted after a similar fall at her assisted living facility. Patient normally ambulates without assistive devices. She just completed rehabilitation and was discharged back to her assisted living yesterday after her recent hospital admission. Family at bedside states that she is acting at her baseline mentation and health and are concerned that she had such a quick turnaround time from rehab to a new fall today. <Zach Heard MD - Last Filed: 02/13/25 20:36> Related Data Home Medications: Home Medications ?Medication ?Instructions ?Recorded ?Confirmed ?Last Taken ?Type ferrous sulfate 325 mg (65 mg 1 tablet PO DAILY 04/09/22 01/25/25 Unknown History iron) tablet (FeroSul) fluoxetine 40 mg capsule 1 cap PO DAILY 04/09/22 01/25/25 Unknown History primidone 50 mg tablet 1 tablet PO Q12H 04/09/22 01/25/25 Unknown History ropinirole 4 mg tablet 1 tablet PO Q12H 04/09/22 01/25/25 Unknown History docusate sodium 100 mg capsule 300 mg PO HS 06/06/22 01/25/25 Unknown History (Stool Softener) calcium carbonate 600 mg PO BIDWM 01/25/25 01/25/25 Unknown History cholecalciferol (vitamin D3) 1,250 1,250 mcg PO WEEKLY 01/25/25 01/25/25 Unknown History mcg (50,000 unit) capsule dorzolamide 2 % eye drops 1 drp EACH EYE BID 01/25/25 01/25/25 Unknown History furosemide 20 mg tablet 20 mg PO .qod 01/25/25 01/25/25 Unknown History latanoprost 0.005 % eye drops 1 drp EACH EYE QPM 01/25/25 01/25/25 Unknown History lisinopril 10 mg tablet 10 mg PO DAILY 01/25/25 01/25/25 Unknown History omeprazole 20 mg capsule,delayed 20 mg PO DAILY 01/25/25 01/25/25 Unknown History release spironolactone 25 mg tablet 25 mg PO DAILY 01/25/25 01/25/25 Unknown History timolol maleate 0.5 % eye drops 1 drp EACH EYE BID 01/25/25 01/25/25 Unknown History <Zach Heard MD - Last Filed: 02/13/25 20:36> Allergies/Adverse Reactions: Allergies Allergy/AdvReac Type Severity Reaction Status Date / Time Cephalosporins Allergy Mild Swelling Verified 02/13/25 00:56 of Lip/Tongue/Throat <Zach Heard MD - Last Filed: 02/13/25 20:36> Review of Systems Review of Systems: As reviewed above in HPI <Zach Heard MD - Last Filed: 02/13/25 20:36> FOR[facility]LY [facility], [facility] Past Medical History Medical History: Medical History Restless leg syndrome Depression GERD (gastroesophageal reflux disease) Anemia UTI (urinary tract infection) Hiatal hernia Essential tremor Hypertension <Zach Heard MD - Last Filed: 02/13/25 20:36> Surgical History Surgical History: Surgical History History of shoulder replacement bilateral Status post total knee replacement, right History of knee replacement procedure of left knee <Zach Heard MD - Last Filed: 02/13/25 20:36> Family History Family History: Family History Mother Glaucoma Father Glaucoma Emphysema lung Heart disease <Zach Heard MD - Last Filed: 02/13/25 20:36> Social History Social History: Social History Smoking status: Never smoker Alcohol intake: never Alcohol use details: rare Substance use: never Substance use type: does not use Do You Feel Safe in your Home?: Yes Lack of Transportation: No Lack of Food: Never True Current Housing: I Have Housing Concerned About Future Housing: No Difficulty Paying Gas/Electric Bills: No Difficulty Paying for Meds: No Currently Unemployed: No Education: High School Diploma/GED Difficulty w/ Childcare or Family Care: No Living arrangements: assisted living Occupation/Education: retired Gender identity (if verbalized by the patient): Female Spiritual care concerns: No <Zach Heard MD - Last Filed: 02/13/25 20:36> Exam Narrative: GENERAL: [Well-appearing, well-nourished, and in no acute distress.] HEAD: Posterior occipital scalp hematoma without any active bleeding. EYES: [PERRLA and EOMI.] ENT: Nares clear, no rhinorrhea or epistaxis. Mucous membranes moist. NECK: Supple. No midline tenderness to the neck. CHEST: [Clear to auscultation. No respiratory distress.] HEART: [Regular rate and rhythm]. No murmur heard. [Normal peripheral pulses.] ABDOMEN: [Soft, nondistended], [nontender], [No rigidity or guarding] EXTREMITIES: Normal range of motion. [No edema.] SKIN: Warm, dry, no rash. NEURO: [No focal deficits]. Alert and oriented at baseline mentation PSYCH: [Normal mood and affect.] <Zach Heard MD - Last Filed: 02/13/25 20:36> Course Course Emergency Course: Care coordination has helped patient in arranging [facility] placement and [facility] in [place]. D/c with family. <Pool Langley MD - Last Filed: 02/13/25 10:45> Vital Signs Vital signs: Vital Signs Temperature 36.6 C 02/13/25 00:56 Pulse Rate 76 04/29/25 00:56 Respiratory Rate 14 02/13/25 00:56 Blood Pressure 122/65 02/13/25 00:56 Pulse Oximetry 97 02/13/25 00:56 Oxygen Delivery Room Air 02/13/25 00:56 Temperature 36.7 C 02/13/25 07:15 Pulse Rate 76 02/13/25 10:00 Respiratory Rate 15 02/13/25 10:00 Blood Pressure 117/60 02/13/25 10:00 Pulse Oximetry 97 02/13/25 10:00 Oxygen Delivery Room Air 02/13/25 00:56 <Zach Heard MD - Last Filed: 02/13/25 20:36> Vital Signs Temperature 36.6 C 02/13/25 00:56 Pulse Rate 76 02/13/25 00:56 Respiratory Rate 14 02/13/25 00:56 Blood Pressure 122/65 02/13/25 00:56 Pulse Oximetry 97 02/13/25 00:56 Oxygen Delivery Room Air 02/13/25 00:56 Temperature 36.7 C 02/13/25 07:15 Pulse Rate 76 02/13/25 10:00 Respiratory Rate 15 02/13/25 10:00 Blood Pressure 117/60 02/13/25 10:00 Pulse Oximetry 97 02/13/25 10:00 Oxygen Delivery Room Air 02/13/25 00:56 <Pool Langley MD - Last Filed: 02/13/25 10:45> MDM - Fall MDM Narrative Medical decision making narrative: 84-year-old female with history of hypertension, GERD, restless legs. Patient presents to the emergency department after a fall. She states that she turned too sharply and fell onto her right side while trying to get up from the bathroom. She landed on her back of the head and right shoulder. Not any acute distress presently and not lose consciousness. No blood thinner use per review of the EMR. Patient's similar and a fall several weeks ago and was admitted after a potential C1 fracture was noted but this was chronic in nature based on neuro surgeries evaluation and previous imaging results. Patient is moving all extremities and has no neurological deficits. She is at her baseline mentation and acting appropriately. Son is at bedside and concerned that she was just discharged from rehab back to her assisted living and she already had a new fall. Patient has no complaints at this time. Given her age and risk factors a CT of the head and cervical spine was ordered as well as the right shoulder x- ray where she was complaining she fell on. Head CT shows no acute intracranial findings. Shoulder x-ray shows no acute abnormality. CT of the cervical spine shows stable C1 fracture which is already well documented and been evaluated by Neurosurgery Dr. Meza during her previous admission without any further workup needed. No acute alignment changes and no acute fracture compared to previous scan. Patient has no tenderness in this area and full range of motion without any neurological deficits. Spoke with the family including the son at bedside with plan of care at this time. They feel like patient is unable to be discharged back to her assisted living facility and requesting add additional or different services/placement. direct mail coordinator consult was placed and they will evaluate the patient this morning for potential placement from the emergency department. Care signed over to Dr. Langley at 7:00 a.m. pending director day care center consult and recommendations. <Zach Heard MD - Last Filed: 02/13/25 20:36> Medical Records Attestation: I reviewed the patient's medical records. <Zach Heard MD - Last Filed: 02/13/25 20:36> Imaging Data Attestation: I personally reviewed and interpreted this imaging study as follows: <Zach Heard MD - Last Filed: 02/13/25 20:36> My impression: Impressions Cervical Spine CT 02/13/25 06:24 Impression: Stable displaced burst fracture of C1, with significant anterior displacement of the anterior spinal, unchanged from prior exam. Neurosurgical consultation advised if not already performed. Suspected moderate canal stenosis at the C1-C2 level related to the anterior displacement. Stable reversal of the normal cervical lordosis with associated extensive degenerative spondylitic changes. Head CT 02/13/25 06:24 Impression: No intracranial hemorrhage, mass, or acute infarct. Atrophy and chronic white matter changes, as above. Shoulder X-Ray 02/13/25 06:30 Impression: No acute abnormality. Right shoulder arthroplasty. <Zach Heard MD - Last Filed: 02/13/25 20:36> Discharge Plan Discharge Clinical Impression: Ground-level fall, Frequent falls <Zach Heard MD - Last Filed: 02/13/25 20:36> Patient Disposition: [facility] <Zach Heard MD - Last Filed: 02/13/25 20:36> Condition: Stable <Zach Heard MD - Last Filed: 02/13/25 20:36> Instructions: General Patient Instructions <Zach Heard MD - Last Filed: 02/13/25 20:36> Additional Instructions: Return the ER if you have chest pain with shortness of breath, you cannot keep down food or water, you lose consciousness, have additional concerns. <Zach Heard MD - Last Filed: 02/13/25 20:36> Patient Language: Montserratian <Zach Heard MD - Last Filed: 02/13/25 20:36> Prescriptions: No Action primidone 50 mg tablet 1 tablet PO Q12H fluoxetine 40 mg capsule 1 cap PO DAILY ropinirole 4 mg tablet 1 tablet PO Q12H ferrous sulfate [FeroSul] 325 mg (65 mg iron) tablet 1 tablet PO DAILY docusate sodium [Stool Softener] 100 mg Capsule 300 mg PO HS calcium carbonate 600 mg calcium (1,500 mg) tablet 600 mg PO BIDWM dorzolamide 2 % drops 1 drp EACH EYE BID furosemide 20 mg tablet 20 mg PO .qod latanoprost 0.005 % drops 1 drp EACH EYE QPM lisinopril 10 mg tablet 10 mg PO DAILY omeprazole 20 mg capsule,delayed release(DR/EC) 20 mg PO DAILY spironolactone 25 mg tablet 25 mg PO DAILY timolol maleate 0.5 % drops 1 drp EACH EYE BID cholecalciferol (vitamin D3) 1,250 mcg (50,000 unit) capsule 1,250 mcg PO WEEKLY Rx Instructions: on Sundays levofloxacin 750 mg tablet 750 mg PO Q48H 3 Days Qty: 3 0RF <Zach Heard MD - Last Filed: 02/13/25 20:36> Follow-up/Referrals: Florentino,Nile Brunson MD [Primary Care Provider] - 1 Week <Zach Heard MD - Last Filed: 02/13/25 20:36>
--- OUTSIDE RECORDS SUMMARY | 2025-02-13 06:35 | XMS_ITS | CONTINUITY OF CARE DOCUMENT ---
Author Name liseth childers Address Unknown Organization [facility] Address [address] [place] [address] Phone [phone] Care Team Providers Care Watch Assembly Instructor Name Role Phone Den SHEEHAN, Colton Unavailable Stone DRAFTER SEISMOGRAPH-BC, Crystal Unavailable [phone] Stone DRAFTER SEISMOGRAPH-BC, Crystal Unavailable PROBLEMS Condition Status Date Provider Notes Cardiology examination active Colton Crenshaw MD HTN essential active Colton Crenshaw MD Anxiety/depression active Colton Crenshaw MD Leg edema, bilateral active Colton Crenshaw MD VENOUS INSUFFICIENCY - mild active Colton oglesby MD ENCOUNTERS Date Type Provider Location Encounter Diag nosis - In-person encounter Office Visit Colton Crenshaw MD [facility] VENOUS INSUFFICIENCY - mild - In-person encounter Office Visit Colton Crenshaw MD [facility] Cardiology examinationHTN essentialAnxiety/depre ssionLeg edema, bilateral [...] / Coverage type Jewels red libertarian ID [facility] [id number] ADVANCE DIRECTIVES Name Date DISCUSSED - NO DECISION MADE TREATMENT PLAN Date Name Performer [id number],C,a dvised her to wear elis bandages around LE because compression stockings would be difficult for her to get on Colton Crenshaw MD [id number],C, B P today: 145/79 P rior BP: 144/70 (05/13/2023) Her updated medication list for this problem includes: Furosemide 40 Mg Tablet (Furosemide) Lisinopril 10 Mg Tablet (Lisinopril) Quinapril 10 Mg Tablet (Quinapril) Colton Crenshaw MD [id number],N, Colton Crenshaw MD [id number],C, B P today: 144/70 Her updated medication list for this problem includes: Furosemide 40 Mg Tablet (Furosemide) Lisinopril 10 Mg Tablet (Lisinopril) Colton Crenshaw MD [id number],C,W ill get labs from her regeneration operator office W ill get LEYLA and standing [...] Crenshaw MD Cardiology:Will get labs from her regeneration operator office W ill get LEYLA and standing venous doppler Colton Den MD Date Name Arterial Duplex Bi-L ower EX Venous Doppler Bilat eral LE - Reflux Complete Echo HISTORY OF PROCEDURES Procedure Date Procedure Name Provider Procedure Notes S tatus EKG Colton Crenshaw MD completed
[2025-02-13] MEDS: ACETAMINOPHEN 500 MG TABLET 1000 MG PO (06:45)
--- NOTE | 2025-02-13 10:27 | PC.NURSE ---
pt is insisting on taking her pants off and just being in her depends. this RN offered to get pt into a hospital gown and pt refused. pt persisted on taking her pants off so this RN made sure the curtains were closed
--- NOTE | 2025-02-13 11:15 | PCCCNOTE ---
Called to the ED d/t the pt having fallen at the assisted living on day one of discharge from being at an acute rehab x2 weeks. Pt stated I turned around and slipped. Stated I get dizzy and fall when I turn is all. Pt's son and [facility] at bedside stated they are ready for skilled placement. Gave him a list of facilities in which they stated they had already looked into some facilites and would like to go to [facility]. Called [facility] and found they have no bed availabilities. Called [facility], Ana with [facility]-no openings, Sharon with [facility], yes semi private, Flor with [facility] yes semi private and [facility] with [facility]. Pt's son choose [facility]. ED provider updated and family connected with [facility] to coordinate the admission process. Son will transfer via personal vehicle. Charge nurse and provider updated on the pt's status.[email or web address]
== END 2025-02-13 11:03 ==
PROVIDERS: Emergency Provider Student in an Organized Health Care Education/Training Program; PCP Internal Medicine
DX: S12.01XA Stable burst fracture of first cervical vertebra, initial encounter for closed fracture (principal); G25.81 Restless legs syndrome; F32.A Depression, unspecified; K21.9 Gastro-esophageal reflux disease without esophagitis; D64.9 Anemia, unspecified; Z87.440 Personal history of urinary (tract) infections; I10 Essential (primary) hypertension; W01.0XXA Fall on same level from slipping, tripping and stumbling without subsequent striking against object, initial encounter
CPT/HCPCS: 70450; 72125; 73030; 99284; A9270